=== PATIENT | male | born 1980 | race Caucasian/White ===

== ENCOUNTER 2019-02-25 19:03 | Emergency (ER) | payer SELFPAY ==
[2019-02-25 19:05] VITALS: BMI 27.8
--- NOTE | 2019-02-25 19:45 | ED_ITS ---
Entered by Shirlene Benites, acting as scribe for Arnie Gupta DO Feb 25, 2019 19:03 HPI - Nausea/Vomiting/Diarrhea General: Chief complaint: Nausea/Vomiting/Diarrhea Stated complaint: N/V Time Seen by Provider: 02/25/19 19:44 Source: patient Mode of arrival: ambulatory Limitations: no limitations History of Present Illness: HPI Narrative: 38 yo Male presents to ED with complaint of abdominal pain, nausea, and vomiting. Pt states that this started last night. Pt states that this happens about every 6 months but this is worse than it has ever been before. Pt states that he was on Prilosec before but he doesn't believe in taking it and it is difficult to afford. Pt states that he has burning pain in his throat from vomiting. MD elicited complaint: nausea, vomiting and abdominal pain Onset (ago): day(s) (last night) Description of vomiting: bilious Associated nausea: Yes Associated abdominal pain: Yes Location of pain: Epigastric Relieving factors: none Associated symtoms: Reports fevers/chills and nausea Review of Systems General: Reports: 10 or more systems reviewed and unremarkable except in HPI and below Const: Reports: fever ENMT: Reports: throat pain GI: Reports: abdominal pain, nausea and vomiting PFSH ED PFSH: Statuses (acute, chronic, etc) shown below reflect problem list status as previously entered and may not be historically accurate Social History (Updated 02/25/19 @ 19:52 by Shirlene Benites) Smoking and tobacco status: current every day smoker Substance/Drug Use: current Substance/Drug use frequency: Special occassions/opportunity only Substance/Drug use type: Marijuana Physical Exam Const: COMMON NORMALS: no apparent distress, average body habitus, oriented x3, no limitations, healthy appearing, alert and well nourished HENMT: COMMON NORMALS: normocephalic, head/scalp atraumatic, hearing grossly normal bilaterally, external ears normal, EAC's normal, TM's normal bilaterally, external nose normal, nasal mucous membranes and turbinates normal, moist oral mucous membranes, oropharynx normal, dentition normal and gingiva normal HEAD & SCALP: normocephalic and atraumatic NOSE: external nose normal and nasal mucous membranes and turbinates normal EXTERNAL EAR: Yes external ears normal EXTERNAL AUDITORY CANAL: EAC's normal TYMPANIC MEMBRANE: TM's normal bilaterally Eye: COMMON NORMALS: PERRL, EOMs intact bilaterally, conjunctivae normal, no scleral icterus, no papilledema, normal visual esquivel by confrontation and fundi normal bilaterally CONJUNCTIVA: Yes conjunctivae normal PUPIL: Yes PERRL DIRECT OPHTHALMOSCOPY: Yes no papilledema and Yes fundi normal bilaterally Neck/C-Spine: COMMON NORMALS: full ROM, no lymphadenopathy, supple, no meningeal signs, no JVD, thyroid normal and no carotid bruits THYROID: thyroid normal Chest: COMMONS NORMALS: inspection of chest normal and palpation of chest normal Resp: COMMON NORMALS: normal respiratory effort, no retractions, no use of accessory muscles, clear to auscultation bilaterally and percussion normal AUSCULTATION: clear to auscultation bilaterally PERCUSSION: percussion normal Cardio: COMMON NORMALS: no JVD, regular rate, regular rhythm, S1 normal heart sound, S2 normal heart sound, no gallops, no clicks, no murmurs, no rub and peripheral pulses 2+ throughout RATE: regular rate RHYTHM: regular rhythm HEART SOUNDS: S1 normal and S2 normal PERIPHERAL PULSES: pulses 2+ throughout GI: COMMON NORMALS: normal to inspection, nondistended, normoactive bowel sounds, soft to palpation, non-tender, no hepatosplenomegaly, no masses and no bruits PALPATION: Yes soft and Yes no hepatosplenomegaly : COMMON NORMALS: Yes no CVA tenderness BLADDER/KIDNEY EXAM: Yes no CVA tenderness Back/Pelvis: COMMON NORMALS: no CVA tenderness, thoracic and lumbar spine normal to inspection, no thoracic nor lumbar tenderness, thoraco-lumbar ROM normal and straight leg raise negative bilaterally Extremity: COMMON NORMALS: normal to inspection, full ROM, normal capillary refill, no joint enlargement, no clubbing, cyanosis or edema, no calf tenderness and no pedal edema Neuro: COMMON NORMALS: oriented x3 SENSORIUM/ORIENTATION: Yes alert MENINGEAL SIGNS: Yes no meningeal signs Skin: COMMON NORMALS: no rashes or lesions noted, no wounds, skin turgor normal, no jaundice, no petechiae and no mottling GENERAL SKIN EXAM: no rashes or lesions noted and turgor normal Course Vital Signs: Vital signs: Vital Signs Pulse Rate 63 02/25/19 21:16 Respiratory Rate 19 H 02/25/19 21:16 Blood Pressure 139/72 02/25/19 21:16 Pulse Oximetry 96 02/25/19 21:16 MDM - Nausea/Vomiting/Diarrhea Lab Data: Labs: Lab Results 02/25/19 02/25/19 Range/Units 20:01 20:01 WBC 10.4 H (4.0-10.0) 10^3/ uL RBC 5.71 H (4.1-5.3) 10^6/u L Hgb 16.6 (11.7-16.6) g/dL Hct 48.3 (42.0-52.0) % MCV 84.6 (80-94) fL MCH 29.1 (28.0-34.0) pg MCHC 34.4 (30.0-36.0) g/dL RDW 12.2 (12.1-15.1) % Plt Count 232 (130-400) 10^3/c mm MPV 10.3 (7.4-10.4) fL Neut % (Auto) 86.6 % Lymph % (Auto) 7.1 % [place] % (Auto) 5.8 % Eos % (Auto) 0.0 % Baso % (Auto) 0.1 % Neut # (Auto) 9.0 H (1.8-7.7) 10^3/u L Lymph # (Auto) 0.7 L (0.8-4.8) 10^3/u L [place] # (Auto) 0.6 (0.2-0.9) 10^3/u L Eos # (Auto) 0.0 (0.0-0.8) 10^3/u L Baso # (Auto) 0.0 (0.0-0.1) 10^3/u L Nucleated RBC % (a uto) 0 % Nucleated RBCs # 0.0 /100WBC Sodium 139 (136-145) mmol/L Potassium 3.8 (3.5-5.1) mmol/L Chloride 96 L (98-107) mmol/L Carbon Dioxide 28 (22-29) mmol/L Anion Gap 18.8 (5-19) BUN 19 (6-20) mg/dL Creatinine 1.0 (0.7-1.2) mg/dL GFR Calculation 83.2 L (90-130) mL/min Glucose 135 H (74-109) mg/dL Calcium 11.0 H (8.6-10.0) mg/Dl Total Bilirubin 0.5 (0.15-1.2) mg/dL AST 21 (0-40) U/L ALT 19 (0-41) U/L Alkaline Phosphata se 81 (40-130) IU/L Total Protein 7.9 (6.6-8.7) g/dL Albumin 5.2 (3.5-5.2) g/dL Globulin 2.7 (1.3-4.6) g/dL Lipase 52 (13-60) U/L Imaging Data^: CT Abd/Pel: Radiologist's impression: [place] [address] CT Scan Report Signed Patient: Caleb Randall CMR#: [id number] : 1980Acct:[id number] Age/Sex: 38 / MADM Date: 02/25/19 Loc: ER Attending Dr: Ordering Physician: Arnie Gupta DO Date of Service: 02/25/19 Procedure(s): CT abdomen pelvis w con* [id number] Accession Number(s): [id number] cc: Arnie Gupta DO~ PROCEDURE INFORMATION: Exam: CT Abdomen And Pelvis With Contrast Exam date and time: 02/25/2019 8:10 PM Age: 38 years old Clinical indication: Pain; Other: Acute gastritis; Additional info: Acute on chronic gastritis TECHNIQUE: Imaging protocol: Computed tomography of the abdomen and pelvis with intravenous contrast. Total DLP: 837.11 mGy-cm Radiation optimization: All CT scans at this facility use at least one of these dose optimization techniques: automated exposure control; mA and/or kV adjustment per patient size (includes targeted exams where dose is matched to clinical indication); or iterative reconstruction. Contrast material: OMNI; Contrast volume: 95 ml; Contrast route: IV; COMPARISON: CT abdomen pelvis w con* [id number] 07/31/2018 2:38 PM FINDINGS: Liver: Normal. No mass. Gallbladder and bile ducts: Normal. No calcified stones. No ductal dilation. Pancreas: Normal. No ductal dilation. Spleen: Normal. No splenomegaly. Adrenals: Normal. No mass. Kidneys and ureters: Normal. No hydronephrosis. Stomach and bowel: Unremarkable. No obstruction. No mucosal thickening. Appendix: Normal. Intraperitoneal space: Unremarkable. No free air. No significant fluid collection. Vasculature: Unremarkable. No abdominal aortic aneurysm. Lymph nodes: Unremarkable. No enlarged lymph nodes. Bladder: Unremarkable as visualized. Reproductive: Unremarkable as visualized. Bones/joints: Unremarkable. No acute fracture. Soft tissues: Unremarkable. CT/CT abdomen pelvis w con* [id number] IMPRESSION: No acute abnormality in the abdomen or pelvis. Radiation Dose CTDIVOL = (mGy): DLP = 837.11 (mGy-cm) Dictated By: Alec Martinez MD 02/25/192122 Signed By: Alec Martinez MD 02/25/192124 Discharge Plan Discharge Patient Disposition: Home, Self-Care Clinical Impression: Dehydration Gastritis Qualifiers: Gastritis type: unspecified gastritis Chronicity: acute Gastritis bleeding: without bleeding Qualified Code(s): K29.00 - Acute gastritis without bleeding GERD (gastroesophageal reflux disease) Qualifiers: Esophagitis presence: with esophagitis Qualified Code(s): K21.0 - Gastro- esophageal reflux disease with esophagitis Nausea and vomiting Qualifiers: Vomiting type: unspecified Vomiting Intractability: non-intractable Qualified Code(s): R11.2 - Nausea with vomiting, unspecified Condition: Stable Prescriptions: New famotidine [Pepcid] 40 mg tablet 40 mg PO BID 56 Days Qty: 112 RF: 0 sucralfate [Carafate] 100 mg/mL suspension 10 ml PO TID 56 Days Qty: 1680 RF: 0 ondansetron 4 mg tablet,disintegrating 4 mg PO Q6H PRN (Reason: nausea and vomiting) Qty: 10 RF: 1 Discharge Orders: Discharge Order (Routine); Ordered 02/25/19 Ordered By: Arnie Gupta Referrals: Charity Alas, [employer] [Family Provider] - Discharge Diet: GI Soft Discharge Activity: Resume usual activity Coding Level of Care Code ED Desktop Support Specialist for Chg Fwd Exam Problem Focused The documentation recorded by the Kamari barrera Carmen, accurately reflects the service I personally performed and the decisions made by Candy ramirez Donald P, DO Feb 25, 2019 19:03
[2019-02-25 19:47] VITALS: BP 121/62; PULSE 80; RESP 18; O2SAT 96
--- NOTE | 2019-02-25 19:54 | CTR_ITS ---
PROCEDURE INFORMATION: Exam: CT Abdomen And Pelvis With Contrast Exam date and time: 02/25/2019 8:10 PM Age: 38 years old Clinical indication: Pain; Other: Acute gastritis; Additional info: Acute on chronic gastritis TECHNIQUE: Imaging protocol: Computed tomography of the abdomen and pelvis with intravenous contrast. Total DLP: 837.11 mGy-cm Radiation optimization: All CT scans at this facility use at least one of these dose optimization techniques: automated exposure control; mA and/or kV adjustment per patient size (includes targeted exams where dose is matched to clinical indication); or iterative reconstruction. Contrast material: OMNI; Contrast volume: 95 ml; Contrast route: IV; COMPARISON: CT abdomen pelvis w con* [id number] 07/31/2018 2:38 PM FINDINGS: Liver: Normal. No mass. Gallbladder and bile ducts: Normal. No calcified stones. No ductal dilation. Pancreas: Normal. No ductal dilation. Spleen: Normal. No splenomegaly. Adrenals: Normal. No mass. Kidneys and ureters: Normal. No hydronephrosis. Stomach and bowel: Unremarkable. No obstruction. No mucosal thickening. Appendix: Normal. Intraperitoneal space: Unremarkable. No free air. No significant fluid collection. Vasculature: Unremarkable. No abdominal aortic aneurysm. Lymph nodes: Unremarkable. No enlarged lymph nodes. Bladder: Unremarkable as visualized. Reproductive: Unremarkable as visualized. Bones/joints: Unremarkable. No acute fracture. Soft tissues: Unremarkable. CT/CT abdomen pelvis w con* [id number] IMPRESSION: No acute abnormality in the abdomen or pelvis. Radiation Dose CTDIVOL = (mGy): DLP = 837.11 (mGy-cm)
[2019-02-25 20:05] VITALS: RESP 18
[2019-02-25] MEDS: morphine 4 mg/mL SDV 1 mL IVP (20:05)
[2019-02-25] MEDS: ondansetron 2 mg/ML SDV 2 mL 4 MG IM (20:05)
[2019-02-25] MEDS: sodium chloride 0.9% 1,000 ML 999 ML IV (20:08)
[2019-02-25 20:10] LABS: Basophils % 0.1 %; Hematocrit 48.3 % (42.0-52.0); Hemoglobin 16.6 g/dL (11.7-16.6); Lymphocytes # 0.7 10^3/uL (0.8-4.8); Lymphocytes % 7.1 %; Mean Corpuscular HGB Conc 34.4 g/dL (30.0-36.0); Mean Corpuscular Hemoglobin 29.1 pg (28.0-34.0); Mean Corpuscular Volume 84.6 fL (80-94); Mean Platelet Volume 10.3 fL (7.4-10.4); Monocytes # 0.6 10^3/uL (0.2-0.9); Monocytes % 5.8 %; Neutrophils % 86.6 %; Nucleated Red Blood Cells % 0 %; Platelet Count 232 10^3/cmm (130-400); Red Blood Count 5.71 10^6/uL (4.1-5.3); Red Cell Distribution Width 12.2 % (12.1-15.1); White Blood Count 10.4 10^3/uL (4.0-10.0)
[2019-02-25 20:28] LABS: Alanine Aminotransferase 19 U/L (0-41); Albumin Level 5.2 g/dL (3.5-5.2); Alkaline Phosphatase 81 IU/L (40-130); Anion Gap 18.8 (5-19); Aspartate Amino Transferase 21 U/L (0-40); Blood Urea Nitrogen 19 mg/dL (6-20); Carbon Dioxide 28 mmol/L (22-29); Chloride 96 mmol/L (98-107); Globulin 2.7 g/dL (1.3-4.6); Glomerular Filtration Rate 83.2 mL/min (90-130); Glucose 135 mg/dL (74-109); Lipase 52 U/L (13-60); Potassium 3.8 mmol/L (3.5-5.1); Sodium 139 mmol/L (136-145); Total Bilirubin 0.5 mg/dL (0.15-1.2); Total Protein 7.9 g/dL (6.6-8.7)
[2019-02-25 20:51] VITALS: BP 132/95; PULSE 68; RESP 18; O2SAT 96
[2019-02-25] MEDS: pantoprazole 40 mg SDV IVP (20:53)
[2019-02-25 21:16] VITALS: BP 139/72; PULSE 63; RESP 19; O2SAT 96
[2019-02-25 22:30] VITALS: BP 117/61; PULSE 70; RESP 19; O2SAT 96
== END 2019-02-25 22:36 | disposition home or self-care (01) ==
PROVIDERS: Emergency Provider Family Medicine; Family Provider Nurse Practitioner
DX: K29.00 Acute gastritis without bleeding (principal); K21.0 Gastro-esophageal reflux disease with esophagitis; F17.210 Nicotine dependence, cigarettes, uncomplicated
CPT/HCPCS: 74177; 80053; 83690; 85025; 96360; 96361; 96374; 99282; C9113; J2270; J2405; J7030; Q9967

== ENCOUNTER 2019-08-31 06:29 | Emergency (ER) | payer SELFPAY ==
[2019-08-31 06:33] VITALS: BP 163/75; PULSE 75; RESP 18; TEMP 36.9; O2SAT 99; BMI 29.1
[2019-08-31 06:45] VITALS: BP 163/75; PULSE 56; RESP 16; O2SAT 96
--- NOTE | 2019-08-31 07:01 | PC.NURSE ---
REPORT GIVEN TO AVELINA Aponte FOR TRANSFER OF CARE.
--- NOTE | 2019-08-31 07:17 | ED_ITS ---
HPI - Abdominal Pain General: Chief Complaint: Abdominal Pain Stated Complaint: n/v abd pain Time Seen by Provider: 08/31/19 06:59 Source: patient Mode of arrival: ambulatory Limitations: no limitations History of Present Illness: HPI narrative: Patient is a 39-year-old male who presents to ED today with complaints of abdominal pain, nausea, vomiting, diarrhea. Patient states pain began approximately 1.5 days ago. He states he has had countless episodes of vomiting and now having a sore throat. He has not noticed any hematemesis, melanotic stools or hematochezia. Patient states he has had similar symptoms several times previously and has been seen here for evaluation many times. Patient states they never have found a definitive cause for his symptoms. Patient does tell me he uses marijuana but is not a habitual user he states he normally will use it on the weekends and rarely throughout the week if he needs something to help him sleep. Patient denies any recent antibiotic use, bad food exposure, sick contacts. He has not been running fevers. MD elicited complaint: abdominal pain Onset (ago): day(s) Pain Consistency: constant Location: Diffuse, RUQ and RLQ Quality: cramping Radiation: none Migration to: no migration Exacerbating factors: eating Relieving factors: nothing Associated Symptoms: Reports diarrhea, nausea and vomiting; Denies chills, coffee ground emesis, dysuria, fever(s), hematochezia, hematemesis, melena and syncope Review of Systems Const: Denies: fever(s), chills, body aches, fatigue or malaise ENMT: Reports: throat pain (sore throat from vomiting per patient) Card: Denies: chest pain, palpitations, irregular heart rhythm, edema, lightheadedness, syncope, pre-syncope or orthopnea Resp: Denies: dyspnea, hemoptysis or chest congestion GI: Reports: abdominal pain, nausea, vomiting and diarrhea; Denies: hematemesis, coffee ground emesis, dysphagia, hematochezia or melena : Denies: flank pain, difficulty urinating, dysuria, urinary frequency, urinary urgency or urinary hesitancy Musc: Denies: neck pain or back pain Skin/Breast: Denies: rash Neuro: Denies: headache(s), numbness in extremities, weakness in extremities or sensory changes PFS ED PFSH: Social History (Updated 02/25/19 @ 19:52 by Shirlene Benites) Smoking and tobacco status: current every day smoker Physical Exam Const: COMMON NORMALS: no acute distress, average body habitus, patient oriented x3, no limitations, healthy appearing, alert and well nourished HENMT: COMMON NORMALS: normocephalic and atraumatic HEAD & SCALP: normocephalic and atraumatic Neck/C-Spine: COMMON NORMALS: full ROM GENERAL: Yes normal visual inspection Chest: COMMONS NORMALS: normal inspection of the chest and normal palpation of entire chest wall Resp: COMMON NORMALS: normal respiratory effort and clear to auscultation bilaterally AUSCULTATION: clear to auscultation bilaterally Cardio: COMMON NORMALS: regular rate and regular rhythm RATE: regular rate RHYTHM: regular rhythm GI: COMMON NORMALS: Normal to inspection, nondistended, normoactive bowel sounds present, Soft to palpation, No hepatosplenomegaly present and no masses INSPECTION: Yes normal to inspection AUSCULTATION: Yes normoactive bowel sounds PALPATION: Yes Soft to palpation, Yes Tenderness to palpation present (GI) (diffuse but more so to R side and epigastric region ) and Yes No hepat osplenomegaly present Extremity: COMMON NORMALS: normal to inspection Neuro: COMMON NORMALS: patient oriented x3 SENSORIUM/ORIENTATION: Yes alert Skin: COMMON NORMALS: no rashes or lesions noted GENERAL SKIN EXAM: no rashes or lesions noted Course Vital Signs: Vital signs: Vital Signs Temperature 98.4 F 08/31/19 06:33 Pulse Rate 52 L 08/31/19 09:38 Respiratory Rate 16 08/31/19 06:45 Blood Pressure 106/58 08/31/19 09:38 Pulse Oximetry 97 08/31/19 09:38 MDM - Abdominal Pain MDM Narrative: Medical decision making narrative: Patient feels better after medications given here. His labs and CT scan are non-concerning at this time. CT scan did report some possible chronic cholecystitis. He has normal LFTs. Looking at patient's previous visit lists he has been seen here several times for similar symptoms. Spoke to him about the possibility of hyperemesis cannabis syndrome. Recommend follow-up with PCP. Return to ED precautions given. Lab Data: Labs: Lab Results 08/31/19 08/31/19 08/31/19 Range/Units 07:15 07:15 08:49 WBC 11.1 H (4.0-10.0) 10^3/ uL RBC 5.49 H (4.1-5.3) 10^6/u L Hgb 16.5 (11.7-16.6) g/dL Hct 47.7 (42.0-52.0) % MCV 86.9 (80-94) fL MCH 30.1 (28.0-34.0) pg MCHC 34.6 (30.0-36.0) g/dL RDW 12.1 (12.1-15.1) % Plt Count 228 (130-400) 10^3/c mm MPV 10.5 H (7.4-10.4) fL Neut % (Auto) 87.9 % Lymph % (Auto) 6.1 % [place] % (Auto) 5.6 % Eos % (Auto) 0.0 % Baso % (Auto) 0.1 % Neut # (Auto) 9.79 H (1.8-7.7) 10^3/u L Lymph # (Auto) 0.7 L (0.8-4.8) 10^3/u L [place] # (Auto) 0.6 (0.2-0.9) 10^3/u L Eos # (Auto) 0.0 (0.0-0.8) 10^3/u L Baso # (Auto) 0.0 (0.0-0.1) 10^3/u L Nucleated RBC % (a uto) 0 % Nucleated RBCs # 0.0 /100WBC Sodium 138 (136-145) mmol/L Potassium 3.5 (3.5-5.1) mmol/L Chloride 98 (98-107) mmol/L Carbon Dioxide 28 (22-29) mmol/L Anion Gap 15.5 (5-19) BUN 15 (6-20) mg/dL Creatinine 0.9 (0.7-1.2) mg/dL GFR Calculation 93.5 (90-130) mL/min Glucose 162 H (65-115) mg/dL Calculated Osmolal ity 286 (285-295) mOsm/k g Calcium 10.2 (8.5-10.5) mg/dL Total Bilirubin 0.5 (0.15-1.2) mg/dL AST 20 (0-40) U/L ALT 18 (0-41) U/L Alkaline Phosphata se 70 (40-130) IU/L Total Protein 7.3 (6.6-8.7) g/dL Albumin 4.9 (3.5-5.2) g/dL Globulin 2.4 (1.3-4.6) g/dL Lipase 38 (13-60) U/L Urine Color Yellow (Yellow) Urine Appearance Clear (CLEAR) Urine pH 7 (5-7) Ur Specific Gravit y 1.010 (1.005-1.030) Urine Protein 1+ H (Negative) Urine Glucose (UA) 2+ (Normal) Urine Ketones 1+ H (Negative) Urine Blood Neg (Negative) Urine Nitrate Negative (Negative) Urine Bilirubin Neg (NEGATIVE) Urine Urobilinogen Norm (Negative) mg/dL Ur Leukocyte Radha ase Negative (Negative) Urine RBC None (0-2) /hpf Urine WBC None (0-5) /hpf Ur Squamous Epith Cells 0-4 H (0-5) Amorphous Sediment Not Reportable Urine Bacteria Trace (NONE) Urine Mucus 2+ Imaging Data ^: CT Abd/Pel: Radiologist's impression: [place] [address] CT Scan Report Signed Patient: Caleb Randall Unit #: [id number] : 1980 Age/Sex: 39 / M ADM Date: 08/31/19 Loc: ER Room/Bed: Attending Dr: Ordering Provider/Ordering MD: Radha Hart Date of Service: 08/31/19 Procedure(s): CT abdomen pelvis w con* [id number] Accession Number(s): [id number] Report Number: [id number] WS: [id number] CT ABDOMEN AND PELVIS WITH CONTRAST HISTORY: R sided/RLQ and epigastric abdominal pain TECHNIQUE: Imaging performed of the abdomen and pelvis with IV contrast. Single phase imaging of the abdomen. Coronal and sagittal reformats are submitted. All CT scans at [facility] use at least one of these dose optimization techniques: automated exposure control; mA and/or kV adjustment per patient size (includes targeted exams where dose is matched to clinical indication); or iterative reconstruction. IV CONTRAST: Omnipaque 300; 95 mL IV. Oral contrast: No DLP: 1040.26 mGy.cm COMPARISON: 02/25/2019 Lower thorax: Lung bases are clear. Heart is normal size. Small hiatal hernia. Liver/biliary system: Liver is normal size. There are a few tiny hypodensities which are too small to characterize. Gallbladder: Mildly contracted gallbladder. No adjacent inflammation. No bile duct dilatation. Pancreas: Normal. Spleen: Normal. Adrenal glands: Normal. Right kidney: Normal. Left kidney: Normal. Aorta: Normal. Lymphadenopathy: None. Free fluid: None. GI tract: Normal appendix. Moderate distention of the stomach with fluid. No acute inflammatory process or obstruction. There are a few diverticula without acute diverticulitis. Abdominal wall: Unremarkable abdominal wall. No hernia. Pelvis: Normal. Bones: Unremarkable. CT/CT abdomen pelvis w con* [id number] IMPRESSION: 1. No acute abdominal or pelvic abnormalities. 2. Slightly contracted gallbladder. May be due to nonfasting state or chronic cholecystitis. Dictated By: Cristina Loco DO Signed By: Cristina Loco DO Signed Date/Time: 08/31/19 1012 DD/ 1000 Discharge Plan Discharge Patient Disposition: Home, Self-Care Clinical Impression: Intermittent abdominal pain, Marijuana user Nausea & vomiting Qualifiers: Vomiting type: unspecified Vomiting Intractability: non-intractable Qualified Code(s): R11.2 - Nausea with vomiting, unspecified Condition: Stable Prescriptions: New ondansetron HCl [Zofran] 4 mg tablet 4 mg PO Q6H PRN (Reason: nausea and vomiting) Qty: 14 RF: 0 Discharge Orders: Discharge Order (Routine); Ordered 08/31/19 Ordered By: Radha Hart Referrals: Charity Alas, [employer]EWEL[employer] FINISH[employer] [Family Provider] - Patient Instructions: Abdominal Pain (ED) Coding Level of Care Code ED Union Organiser for g Fwd Exam Comprehensive
[2019-08-31 07:26] LABS: Basophils % 0.1 %; Hematocrit 47.7 % (42.0-52.0); Hemoglobin 16.5 g/dL (11.7-16.6); Lymphocytes # 0.7 10^3/uL (0.8-4.8); Lymphocytes % 6.1 %; Mean Corpuscular HGB Conc 34.6 g/dL (30.0-36.0); Mean Corpuscular Hemoglobin 30.1 pg (28.0-34.0); Mean Corpuscular Volume 86.9 fL (80-94); Mean Platelet Volume 10.5 fL (7.4-10.4); Monocytes # 0.6 10^3/uL (0.2-0.9); Monocytes % 5.6 %; Neutrophils # 9.79 10^3/uL (1.8-7.7); Neutrophils % 87.9 %; Nucleated Red Blood Cells % 0 %; Platelet Count 228 10^3/cmm (130-400); Red Blood Count 5.49 10^6/uL (4.1-5.3); Red Cell Distribution Width 12.1 % (12.1-15.1); White Blood Count 11.1 10^3/uL (4.0-10.0)
[2019-08-31] MEDS: ondansetron 2 mg/ML SDV 2 mL 4 MG IVP (07:30)
[2019-08-31] MEDS: sodium chloride 0.9% 1,000 ML 999 ML IV (07:30)
[2019-08-31] MEDS: cetacaine Spray 5 gm Can 1 SPRAY TOPICAL (07:30)
[2019-08-31 07:38] LABS: Alanine Aminotransferase 18 U/L (0-41); Albumin Level 4.9 g/dL (3.5-5.2); Alkaline Phosphatase 70 IU/L (40-130); Anion Gap 15.5 (5-19); Aspartate Amino Transferase 20 U/L (0-40); Blood Urea Nitrogen 15 mg/dL (6-20); Calcium 10.2 mg/dL (8.5-10.5); Carbon Dioxide 28 mmol/L (22-29); Chloride 98 mmol/L (98-107); Creatinine Clr Calc Pharmacy 132.0506; Globulin 2.4 g/dL (1.3-4.6); Glomerular Filtration Rate 93.5 mL/min (90-130); Glucose 162 mg/dL (65-115); Lipase 38 U/L (13-60); Osmolality Calculated 286 mOsm/kg (285-295); Potassium 3.5 mmol/L (3.5-5.1); Sodium 138 mmol/L (136-145); Total Bilirubin 0.5 mg/dL (0.15-1.2); Total Protein 7.3 g/dL (6.6-8.7)
--- NOTE | 2019-08-31 07:49 | CT_ITS ---
WS: [id number] CT ABDOMEN AND PELVIS WITH CONTRAST HISTORY: R sided/RLQ and epigastric abdominal pain TECHNIQUE: Imaging performed of the abdomen and pelvis with IV contrast. Single phase imaging of the abdomen. Coronal and sagittal reformats are submitted. All CT scans at [facility] use at least one of these dose optimization techniques: automated exposure control; mA and/or kV adjustment per patient size (includes targeted exams where dose is matched to clinical indication); or iterativ e reconstruction. IV CONTRAST: Omnipaque 300; 95 mL IV. Oral contrast: No DLP: 1040.26 mGy.cm COMPARISON: 02/25/2019 Lower thorax: Lung bases are clear. Heart is normal size. Small hiatal hernia. Liver/biliary system: Liver is normal size. There are a few tiny hypodensities which are too small to characterize. Gallbladder: Mildly contracted gallbladder. No adjacent inflammation. No bile duct dilatation. Pancreas: Normal. Spleen: Normal. Adrenal glands: Normal. Right kidney: Normal. Left kidney: Normal. Aorta: Normal. Lymphadenopathy: None. Free fluid: None. GI tract: Normal appendix. Moderate distention of the stomach with fluid. No acute inflammatory proce ss or obstruction. There are a few diverticula without acute diverticulitis. Abdominal wall: Unremarkable abdominal wall. No hernia. Pelvis: Normal. Bones: Unremarkable. CT/CT abdomen pelvis w con* [id number] IMPRESSION: 1. No acute abdominal or pelvic abnormalities. 2. Slightly contracted gallbladder. May be due to nonfasting state or chronic cholecystitis.
[2019-08-31] MEDS: morphine 4 mg/mL SDV 1 mL IVP (08:05)
[2019-08-31 08:10] VITALS: BP 143/80; PULSE 67; O2SAT 99
[2019-08-31] MEDS: iohexol 300 mg/mL 100 mL Btl IV (08:24)
[2019-08-31] MEDS: metoclopramide 5 mg/mL SDV 2 mL 10 MG IVP (08:32)
[2019-08-31] MEDS: LORazepam 2 mg/mL INJ 1 mL 1 MG IVP (08:35)
[2019-08-31 08:44] VITALS: BP 122/77; PULSE 61; O2SAT 95
[2019-08-31 09:09] LABS: Urine Appearance Clear (CLEAR); Urine Color Yellow (Yellow); pH Urine 7 (5-7)
[2019-08-31 09:10] LABS: Add Urine Microscopic? YES; Bilirubin Urine Neg (NEGATIVE); Blood Urine Neg (Negative); Glucose Urine UA 2+ (Normal); Ketones Urine 1+ (Negative); Leukocyte Esterase Urine Negative (Negative); Nitrate Urine Negative (Negative); Protein Urine 1+ (Negative); Urobilinogen Urine Norm (Negative)
[2019-08-31 09:30] LABS: Add Urine Culture? No; Bacteria Urine TRACE; Mucus Urine 2+; Squamous Epithelial Cell Urine 0-4 (0-5)
[2019-08-31 09:38] VITALS: BP 106/58; PULSE 52; O2SAT 97
[2019-08-31 10:57] VITALS: BP 129/67; PULSE 79; O2SAT 97
== END 2019-08-31 10:57 | disposition home or self-care (01) ==
PROVIDERS: Emergency Provider Physician Assistant; PCP Nurse Practitioner
DX: R10.9 Unspecified abdominal pain (principal); R11.2 Nausea with vomiting, unspecified; F12.90 Cannabis use, unspecified, uncomplicated; F17.210 Nicotine dependence, cigarettes, uncomplicated
CPT/HCPCS: 12345; 74177; 80053; 81001; 81003; 83690; 85025; 96361; 96374; 96375; 99283; 99284; J2060; J2270; J2405; J2765; J7030; Q9967

== ENCOUNTER 2019-10-17 23:03 | Emergency (ER) | payer SELFPAY ==
[2019-10-17 23:22] VITALS: BP 150/83; PULSE 93; RESP 18; TEMP 36.7; O2SAT 97; BMI 27.8
--- NOTE | 2019-10-17 23:27 | W.ED.NAVMDI ---
HPI - Nausea/Vomiting/Diarrhea General: Chief complaint: Nausea/Vomiting/Diarrhea Stated complaint: n/v Time Seen by Provider: 10/17/19 23:26 History of Present Illness: HPI Narrative: Patient is a 39-year-old male who comes to the ED with abdominal pain, nausea, vomiting and diarrhea. Patient was seen here on August 30 for similar complaint. Symptoms started yesterday evening. Patient describes abdominal pain is in the epigastric region and also in the right upper quadrant. He rates pain currently an 8 out of 10. Describes it as a burning pain. Patient says he has been unable to keep any food or drink down since symptoms started yesterday. He has had multiple episodes of emesis and whenever he tries to eat or drink anything it comes back up. He also reports multiple episodes of diarrhea last 24 hours as well. He reports a brief improvement of symptoms when taking a hot shower. Patient does admit that he is a chronic marijuana user. He states he is tried cutting back since his last ED visit on August 30. Denies fever, chills, blood in the emesis, chest pain, shortness of breath, dysuria, hematuria, blood in the stool, black tarry stool or constipation. Associated nausea: Yes Associated symtoms: Reports nausea; Denies change in vision, chest pain, dysuria, fatigue, headache(s) or palpitations Review of Systems Const: Denies: fever(s), chills or fatigue Eyes: Denies: change in vision or eye discomfort ENMT: Denies: throat pain, odynophagia, nasal discharge or nasal congestion Card: Denies: chest pain, palpitations, edema, swelling of feet/ankles, dyspnea on exertion or orthopnea Resp: Denies: dyspnea, productive cough or non-productive cough GI: Reports: abdominal pain (epigastric and RUQ), nausea, vomiting and diarrhea; Denies: constipation or hematochezia : Denies: flank pain, difficulty urinating, dysuria or hematuria Musc: Denies: neck pain, back pain or extremity swelling Skin/Breast: Denies: rash or new lesions Neuro: Denies: headache(s), numbness in extremities or weakness in extremities PFS ED PFSH: Social History Smoking and tobacco status: current every day smoker Physical Exam Narrative: EXAM NARRATIVE: Patient is a 39-year-old male that was having an episode of emesis when I entered the room. Const: COMMON NORMALS: patient oriented x3 and alert GENERAL APPEARANCE: cooperative and ill appearing (Patient appeared sick and was vomiting when I enter the room.) HENMT: COMMON NORMALS: normocephalic HEAD & SCALP: normocephalic MOUTH: moist mucous membranes abnormal (mild dehydration) THROAT: posterior oropharynx normal and uvula midline Eye: COMMON NORMALS: Equal, round and reactive pupils present PUPIL: Yes Equal, round and reactive pupils present Neck/C-Spine: COMMON NORMALS: supple GENERAL: Yes normal visual inspection Resp: COMMON NORMALS: normal respiratory effort, No retractions, No use of accessory muscles and clear to auscultation bilaterally AUSCULTATION: clear to auscultation bilaterally Cardio: COMMON NORMALS: regular rate, regular rhythm, S1 normal heart sound present, S2 normal heart sound present, No gallops present (Cardio), No clicks present (Cardio), No murmurs present (Cardio) and Peripheral pulses 2+ throughout RATE: regular rate RHYTHM: regular rhythm HEART SOUNDS: S1 normal heart sound present and S2 normal heart sound present PERIPHERAL PULSES: Peripheral pulses 2+ throughout GI: COMMON NORMALS: Normal to inspection, nondistended, normoactive bowel sounds present, Soft to palpation and no masses PALPATION: Yes Soft to palpation and Yes Tenderness to palpation present (GI) Details: RUQ (Mild tenderness with positive Ruiz sign.) and other (Epigastric region) : COMMON NORMALS: Yes no CVA tenderness BLADDER/KIDNEY EXAM: Yes no CVA tenderness Back/Pelvis: COMMON NORMALS: no CVA tenderness Extremity: COMMON NORMALS: normal to inspection and no pedal edema Neuro: COMMON NORMALS: patient oriented x3 and moves all extremities SENSORIUM/ORIENTATION: Yes alert Skin: COMMON NORMALS: no rashes or lesions noted GENERAL SKIN EXAM: no rashes or lesions noted and dry skin Course Reevaluation(s): Reevaluation #1: I went and checked on patient after he received IV medications and he said his nausea and pain have greatly improved. Time: 00:38 Vital Signs: Vital signs: Vital Signs Temperature 98.1 F 10/17/19 23:22 Pulse Rate 93 10/17/19 23:22 Respiratory Rate 20 H 10/18/19 00:25 Blood Pressure 150/83 10/17/19 23:22 Pulse Oximetry 97 10/17/19 23:22 MDM - Nausea/Vomiting/Diarrhea MDM Narrative: Medical decision making narrative: Patient is a 39-year-old male who comes to the ED with nausea and vomiting and epigastric and right upper quadrant abdominal pain. Patient has been seen here in the ED before for similar complaint. Patient reports having multiple episodes of nausea and emesis over the last 24 hours. His symptoms improved with hot shower. Patient is a chronic marijuana smoker. Patient had a tender right upper quadrant and epigastric region. CBC and CMP were unremarkable. Lipase 13. H. pylori negative. ultrasound of gallbladder was ordered and it showed no acute findings. Patient's symptoms improved greatly after IV fluids and meds. He had no further episodes of vomiting or nausea while here in the ED after getting treatment. Patient was diagnosed with cannabinoid hyperemesis syndrome. He was sent home on a clear liquid diet and told advance as tolerated. He was given a prescription for Reglan to help with nausea and vomiting. Discussed with him cessation of marijuana is the only way to resolve symptoms. Follow-up with PCP in 7 to 10 days. Patient understood and agreed with plan. Return to ED precautions given. Lab Data: Attestation: I reviewed the patient's lab results. Labs: Lab Results 10/18/19 10/18/19 10/18/19 Range/Units 00:10 00:10 00:10 WBC 9.0 (4.0-10.0) 10^3/ uL RBC 5.54 H (4.1-5.3) 10^6/u L Hgb 16.2 (11.7-16.6) g/dL Hct 48.1 (42.0-52.0) % MCV 86.8 (80-94) fL MCH 29.2 (28.0-34.0) pg MCHC 33.7 (30.0-36.0) g/dL RDW 12.3 (12.1-15.1) % Plt Count 233 (130-400) 10^3/c mm MPV 10.7 H (7.4-10.4) fL Neut % (Auto) 88.6 % Lymph % (Auto) 6.2 % [place] % (Auto) 5.0 % Eos % (Auto) 0.0 % Baso % (Auto) 0.1 % Neut # (Auto) 7.99 H (1.8-7.7) 10^3/u L Lymph # (Auto) 0.6 L (0.8-4.8) 10^3/u L [place] # (Auto) 0.5 (0.2-0.9) 10^3/u L Eos # (Auto) 0.0 (0.0-0.8) 10^3/u L Baso # (Auto) 0.0 (0.0-0.1) 10^3/u L Nucleated RBC % (a uto) 0 % Nucleated RBCs # 0.0 /100WBC Sodium 141 (136-145) mmol/L Potassium 3.7 (3.5-5.1) mmol/L Chloride 100 (98-107) mmol/L Carbon Dioxide 31 H (22-29) mmol/L Anion Gap 13.7 (5-19) BUN 11 (6-20) mg/dL Creatinine 0.9 (0.7-1.2) mg/dL GFR Calculation 93.5 (90-130) mL/min Glucose 156 H (65-115) mg/dL Calculated Osmolal ity 291 (285-295) mOsm/k g Calcium 9.4 (8.5-10.5) mg/dL Total Bilirubin 0.5 (0.15-1.2) mg/dL AST 15 (0-40) U/L ALT 16 (0-41) U/L Alkaline Phosphata se 69 (40-130) IU/L Total Protein 7.2 (6.6-8.7) g/dL Albumin 4.8 (3.5-5.2) g/dL Globulin 2.4 (1.3-4.6) g/dL Lipase 13 (13-60) U/L H. pylori IgG Anti body Negative (Negative) Imaging Data^: US: Attestation: I personally reviewed and interpreted this imaging study as follows: Radiologist's impression: Ultrasound of gallbladder?prelim report showed no acute findings or gallstones. Discharge Plan Discharge Patient Disposition: Home Clinical Impression: Cannabinoid hyperemesis syndrome Condition: Stable Prescriptions: New Reglan 10 mg tablet 10 mg PO Q6H PRN (Reason: nausea and vomiting) Qty: 30 RF: 0 No Action Zofran 4 mg tablet 4 mg PO Q6H PRN (Reason: nausea and vomiting) Qty: 14 RF: 0 Discharge Orders: Discharge Order (Routine); Ordered 10/18/19 Ordered By: Han Dillard Referrals: Charity Alas, STAGECRAFT PROFESSOR-C [Primary Care Provider] - Discharge Diet: Advance as tolerated and Clear Liquid Discharge Activity: Increase activity as tolerated Patient Instructions: Clear Liquid Diet (ED) Activity Restrictions/Additional Instructions: Follow-up with medical provider as directed in 7-10 days. For Cannabinoid hyperemesis syndrome cessation of marijuana use the best way to stop symptoms. Follow a clear liquid diet for the next 24 hours then advance as tolerated. Take medications as prescribed. I am sending you home with an antinausea med called Reglan. You can use this med and set of Zofran as needed for nausea and vomiting. Make sure to drink plenty of fluids and stay hydrated. Return to the ER or your medical provider if condition worsens. Please read and understand discharge instructions. If any questions, please ask. Coding Level of Care Code ED Riveting Machine Operator Automatic for Terrance Fwd Exam Comprehensive
--- NOTE | 2019-10-17 23:34 | US_ITS ---
WS: [id number] ULTRASOUND ABDOMEN LIMITED CLINICAL INFORMATION: RUQ tenderness, n/v COMPARISON: None. FINDINGS: Liver Size: Normal. Craniocaudal length: 15.9 cm. Echogenicity: Normal. Surface nodularity: None. Mass (size and location): None. Bile ducts Intrahepatic ducts: Normal. Common bile duct diameter: 0.5 cm. Gallbladder Normal. Gallstones: None. Gallbladder sludge: None. Gallbladder wall thickening: None. Pericholecystic fluid: None. Sonographic Ruiz sign: Absent. Pancreas Not well seen Right kidney: Normal. Hydronephrosis: None. Size: 11.4 cm x 5.1 cm x 3.8 cm. Abdominal aorta and IVC Visualized portions are normal. Ascites: None. US/US gall bladder [id number] IMPRESSION: 1. Liver is normal. 2. Normal gallbladder. 3. No hydronephrosis in right kidney.
[2019-10-18] MEDS: sodium chloride 0.9% 1,000 ML 999 ML IV ×2 (00:15→01:52)
[2019-10-18] MEDS: metoclopramide 5 mg/mL SDV 2 mL 10 MG IVP (00:20)
[2019-10-18 00:25] VITALS: RESP 20
[2019-10-18] MEDS: morphine 4 mg/mL SDV 1 mL IVP (00:25)
[2019-10-18 00:33] LABS: Basophils % 0.1 %; Hematocrit 48.1 % (42.0-52.0); Hemoglobin 16.2 g/dL (11.7-16.6); Lymphocytes # 0.6 10^3/uL (0.8-4.8); Lymphocytes % 6.2 %; Mean Corpuscular HGB Conc 33.7 g/dL (30.0-36.0); Mean Corpuscular Hemoglobin 29.2 pg (28.0-34.0); Mean Corpuscular Volume 86.8 fL (80-94); Mean Platelet Volume 10.7 fL (7.4-10.4); Monocytes # 0.5 10^3/uL (0.2-0.9); Neutrophils # 7.99 10^3/uL (1.8-7.7); Neutrophils % 88.6 %; Nucleated Red Blood Cells % 0 %; Platelet Count 233 10^3/cmm (130-400); Red Blood Count 5.54 10^6/uL (4.1-5.3); Red Cell Distribution Width 12.3 % (12.1-15.1)
[2019-10-18 00:44] LABS: Alanine Aminotransferase 16 U/L (0-41); Albumin Level 4.8 g/dL (3.5-5.2); Alkaline Phosphatase 69 IU/L (40-130); Anion Gap 13.7 (5-19); Aspartate Amino Transferase 15 U/L (0-40); Blood Urea Nitrogen 11 mg/dL (6-20); Calcium 9.4 mg/dL (8.5-10.5); Carbon Dioxide 31 mmol/L (22-29); Chloride 100 mmol/L (98-107); Globulin 2.4 g/dL (1.3-4.6); Glomerular Filtration Rate 93.5 mL/min (90-130); Glucose 156 mg/dL (65-115); H. Pylori IgG Antibody Negative (Negative); Lipase 13 U/L (13-60); Osmolality Calculated 291 mOsm/kg (285-295); Potassium 3.7 mmol/L (3.5-5.1); Sodium 141 mmol/L (136-145); Total Bilirubin 0.5 mg/dL (0.15-1.2); Total Protein 7.2 g/dL (6.6-8.7)
[2019-10-18] MEDS: metoclopramide 5 mg/mL SDV 2 mL IVP (01:55)
[2019-10-18 02:37] VITALS: BP 131/60; PULSE 65; RESP 18; O2SAT 98
== END 2019-10-18 02:38 | disposition home or self-care (01) ==
PROVIDERS: Emergency Medicine; Emergency Provider Physician Assistant; PCP Nurse Practitioner
DX: R11.10 Vomiting, unspecified (principal); F17.210 Nicotine dependence, cigarettes, uncomplicated
CPT/HCPCS: 12345; 76705; 80053; 83690; 85025; 86677; 96360; 96361; 96374; 96375; 96376; 99282; 99283; J2270; J2765; J7030

== ENCOUNTER 2020-10-16 20:43 | Emergency (ER) | payer SELFPAY ==
[2020-10-16 22:03] VITALS: BP 146/66; PULSE 72; RESP 16; TEMP 36.9; O2SAT 97; BMI 27.8
--- NOTE | 2020-10-17 00:25 | XRR_ITS ---
PROCEDURE INFORMATION: Exam: XR Left Tibia and Fibula Exam date and time: 10/17/2020 12:25 AM Age: 40 years old Clinical indication: Injury or trauma; Lower leg; Left; Without foreign body; Patient HX: Puncture wound to anterior aspect of distal tibia. ; Additional info: Pain TECHNIQUE: Imaging protocol: XR Left tibia and fibula. Views: 2 views. COMPARISON: No relevant prior studies available. FINDINGS: Bones/joints: No fracture. Soft tissues: Normal. XR/XR tibia fibula LT 2V [id number] IMPRESSION: No fracture.
--- NOTE | 2020-10-17 01:50 | ED_ITS ---
HPI - Extremity Problem General: Chief complaint: Extremity Injury, Lower Stated complaint: left leg pain Time Seen by Provider: 10/17/20 01:50 History of Present Illness: HPI Narrative: 40-year-old male patient comes in today with complaints of redness and tenderness to the puncture wound that occurred 2 days ago. Patient had his tetanus shot updated yesterday. Patient denies any chronic medical problems. Review of Systems General: Reports: 10 or more systems reviewed and unremarkable except in HPI and below Musc: Reports: other (Redness and swelling to wound site) PFS ED PFSH: Social History Smoking and tobacco status: current every day smoker Physical Exam Const: COMMON NORMALS: no acute distress and patient oriented x3 GENERAL APPEARANCE: cooperative HENMT: COMMON NORMALS: normocephalic and Normal external nose present HEAD & SCALP: normal to inspection and normocephalic NOSE: Normal external nose present MOUTH: Normal oral and palatal mucosa present Eye: GENERAL EYE: appearance normal, both eyes and all related structures Neck/C-Spine: COMMON NORMALS: full ROM Chest: COMMONS NORMALS: normal inspection of the chest Resp: COMMON NORMALS: normal respiratory effort EFFORT & INSPECTION: Yes able to speak in complete sentences Cardio: COMMON NORMALS: regular rate and regular rhythm RATE: regular rate RHYTHM: regular rhythm GI: COMMON NORMALS: non-tender : COMMON NORMALS: Yes no CVA tenderness BLADDER/KIDNEY EXAM: Yes no CVA tenderness Back/Pelvis: COMMON NORMALS: no CVA tenderness and thoracic and lumbar spine normal to inspection Extremity: COMMON NORMALS: normal to inspection Neuro: COMMON NORMALS: patient oriented x3 and moves all extremities Psych: COMMON NORMALS: mental status grossly normal and cooperative Skin: NARRATIVE SKIN EXAM: Patient has a puncture wound to the left lower leg with a small amount of serous sanguinous drainage. Patient has an area of approximately 6 cm around the site with redness. Distal pulses are intact. Cap refill is intact. Course Vital Signs: Vital signs: Vital Signs Temperature 98.4 F 10/16/20 22:03 Pulse Rate 72 10/16/20 22:03 Respiratory Rate 16 10/16/20 22:03 Blood Pressure 146/66 10/16/20 22:03 Pulse Oximetry 97 10/16/20 22:03 MDM - Extremity (Nontraumatic) MDM Narrative: Medical decision making narrative: 40-year-old male patient comes in with some redness and swelling to the left lower extremity secondary to a puncture wound. Patient is a routinely healthy young man. Patient has normal vital signs. Patient got his tetanus shot done yesterday. Exam of the wound notes a small puncture wound with a area of redness surrounding it about 6 cm. Differential diagnosis includes but not limited to cellulitis, local reaction to wound, retained foreign body. Patient reports that the wire that into the wound came out in 1 piece. Suspect patient has a secondary infection due to a puncture wound. We will start patient on clindamycin due to his allergy to amoxicillin. We will do 450 mg 3 times a day for the next 7 days. Patient was instructed to elevate the wound use warm moist packs to the area and monitor for worsening symptoms. Patient reported understanding and agreed to plan. Discharge Plan Discharge Patient Disposition: Home Clinical Impression: Puncture wound Condition: Stable Prescriptions: New clindamycin HCl 150 mg capsule 450 mg PO Q8H 7 Days Qty: 63 RF: 0 ibuprofen 800 mg tablet 800 mg PO TID PRN (Reason: pain) Qty: 30 RF: 0 No Action Reglan 10 mg tablet 10 mg PO Q6H PRN (Reason: nausea and vomiting) Qty: 30 RF: 0 Zofran 4 mg tablet 4 mg PO Q6H PRN (Reason: nausea and vomiting) Qty: 14 RF: 0 Discharge Orders: Discharge ED (Routine); Ordered 10/17/20 Ordered By: Felipe Laughlin Referrals: Charity Alas, DELIVERY AGENT-C [Primary Care Provider] - Discharge Diet: Usual diet Discharge Activity: Increase activity as tolerated Patient Instructions: Puncture Wound (ED), Opioid Safety Activity Restrictions/Additional Instructions: Home and rest. Elevate leg. Use acetaminophen and ibuprofen for pain. Take antibiotic clindamycin 450 mg 3 times a day for the next 7 days. Use warm moist heat to the area for comfort and to promote drainage if needed. Drink plenty of water with medications. Follow-up with primary care as needed. Return to the ER for worsening symptoms or new concerns. Coding Level of Care Code ED Loading Machine Adjuster for Terrance Obregon
[2020-10-17 02:08] VITALS: BP 142/76; PULSE 70; RESP 16; O2SAT 97
[2020-10-17] MEDS: clindamycin 150 mg Capsule 450 MG PO (02:08)
[2020-10-17] MEDS: ibuprofen 800 mg tablet PO (02:08)
== END 2020-10-17 02:09 | disposition home or self-care (01) ==
PROVIDERS: Emergency Provider Nurse Practitioner Family; PCP Nurse Practitioner
DX: S81.832A Puncture wound without foreign body, left lower leg, initial encounter (principal); W26.8XXA Contact with other sharp object(s), not elsewhere classified, initial encounter; F17.210 Nicotine dependence, cigarettes, uncomplicated
CPT/HCPCS: 73590; 99283

== ENCOUNTER 2021-02-15 16:14 | Emergency (ER) | payer SELFPAY ==
[2021-02-15 16:32] VITALS: BP 145/75; PULSE 77; RESP 16; TEMP 37.1; O2SAT 98
--- NOTE | 2021-02-15 16:58 | ED_ITS ---
HPI - Nausea/Vomiting/Diarrhea General: Chief complaint: Nausea/Vomiting/Diarrhea Stated complaint: n/v/d Time Seen by Provider: 02/15/21 16:58 History of Present Illness: HPI Narrative: Mr. Randall is a 40-year-old gentleman without significant past medical history who presents to the emergency department due to nausea, vomiting, and abdominal pain. Symptom onset was subacute at approximately 9 PM last night. He did eat out but denies any other specific known provoking factor. Since symptom onset symptoms have persisted. Intensity is moderate to severe. Pain is aching/sharp in quality. No significant radiation. Denies hematemesis. No urinary symptoms or diarrhea. Denies frequent episodes in the past. No other specific changes in health, exacerbating, relieving factors identified. Review of Systems General: Reports: 10 or more systems reviewed and unremarkable except in HPI and below PFSH ED PFSH: Social History Smoking and tobacco status: current every day smoker Physical Exam Narrative: EXAM NARRATIVE: GENERAL/CONSTITUTIONAL -somewhat ill-appearing. Uncomfortable Eyes - PERRL, no conjunctival injection ENMT - Atraumatic external nose and ears. Moist mucous membranes NECK - supple. trachea midline CARDIOVASCULAR - regular rate and rhythm. RESPIRATORY -clear to auscultation bilaterally. . ABDOMEN/GI -generalized tenderness palpation worse in the epigastric region. No evidence of remote peritonitis. MSK - Extremities without obvious deformity or tenderness to palpation SKIN - Warm, Dry NEURO - alert and appropriately oriented. Moves all extremities equally. PSYCH - Appropriate mood and affect Course ED course: - Patient was seen and evaluated by me at bedside - Patient placed on cardiac monitors, IV access obtained - Initial evaluation notable for exam as above -Symptom treatment - Labs notable for leukocytosis, hemoconcentration. No acute electrolyte derangement, given hemolysis potassium replenishment ordered. No evidence of urinary infection. - Upon reassessment patient appears somewhat worse clinically and therefore imaging warranted. - Imaging notable for no acute finding to explain patient's symptoms - Patient improved with additional treatment. - Based on patient history, evaluation, labs, and imaging as interpreted the most likely cause of the patient's condition is unspecified nausea, vomiting, and abdominal pain - The results of ED evaluation were discussed with the patient including prescriptions and/or symptomatic cares (if applicable) including appropriate and responsible use, followup plan, and return precautions. The patient verbalized understanding and felt safe for discharge. - Patient discharged in satisfactory condition. Vital Signs: Vital signs: Vital Signs Temperature 98.8 F 02/15/21 16:32 Pulse Rate 73 02/15/21 17:04 Respiratory Rate 16 02/15/21 19:05 Blood Pressure 138/74 02/15/21 17:04 Pulse Oximetry 99 02/15/21 17:04 MDM - Nausea/Vomiting/Diarrhea Medical Records: Attestation: I reviewed the patient's medical records. Lab Data: Attestation: I reviewed the patient's lab results. Labs: Lab Results 02/15/21 02/15/21 02/15/21 14:59 14:59 17:56 WBC 12.0 10^3/uL H 10 ^3/uL (4.0-10.0) RBC 5.54 10^6/uL H 10 ^6/uL (4.1-5.3) Hgb 16.3 g/dL g/dL (11.7-16.6) Hct 47.6 % % (42.0-52.0) MCV 85.9 fl fl (80-94) MCH 29.4 pg pg (28.0-34.0) MCHC 34.2 g/dL g/dL (30.0-36.0) RDW 12.1 % % (12.1-15.1) Plt Count 265 10^3/cmm 10^3 /cmm (130-400) MPV 10.5 fL H fL (7.4-10.4) Neut % (Auto) 88.5 % % Lymph % (Auto) 6.2 % % [place] % (Auto) 5.0 % % Eos % (Auto) 0.0 % % Baso % (Auto) 0.1 % % Neut # (Auto) 10.63 10^3/uL H 1 0^3/uL (1.8-7.7) Lymph # (Auto) 0.8 10^3/uL 10^3/ uL (0.8-4.8) [place] # (Auto) 0.6 10^3/uL 10^3/ uL (0.2-0.9) Eos # (Auto) 0.0 10^3/uL 10^3/ uL (0.0-0.8) Baso # (Auto) 0.0 10^3/uL 10^3/ uL (0.0-0.1) Nucleated RBC % (a uto) 0 % % Nucleated RBCs # 0.0 /100WBC /100W BC Sodium 138 mmol/L mmol/L (136-145) Potassium 3.5 mmol/L mmol/L (3.5-5.1) Chloride 98 mmol/L mmol/L (98-107) Carbon Dioxide 27 mmol/L mmol/L (22-29) Anion Gap 16.5 (5-19) BUN 10 mg/dL mg/dL (6-20) Creatinine 0.8 mg/dL mg/dL (0.7-1.2) GFR Calculation 106.5 mL/min mL/m in (90-130) Glucose 126 mg/dL H mg/dL (65-115) Calculated Osmolal ity 287 mOsm/kg mOsm/ kg (285-295) Calcium 9.2 mg/dL mg/dL (8.5-10.5) Total Bilirubin 0.3 mg/dL mg/dL (0.15-1.2) AST 17 U/L U/L (0-40) ALT 19 U/L U/L (0-41) Alkaline Phosphata se 78 IU/L IU/L (40-130) Total Protein 7.2 g/dL g/dL (6.6-8.7) Albumin 4.5 g/dL g/dL (3.5-5.2) Globulin 2.7 g/dL g/dL (1.3-4.6) Lipase 15 U/L U/L (13-60) Urine Color Yellow (Yellow) Urine Appearance Clear (CLEAR) Urine pH 8 H (5-7) Ur Specific Gravit y 1.010 (1.005-1.030) Urine Protein Neg (Negative) Urine Glucose (UA) Norm (Normal) Urine Ketones Negative (Negative) Urine Blood Neg (Negative) Urine Nitrate Negative (Negative) Urine Bilirubin Neg (Negative) Prot Sulfosalicyli c Acd Negative (Negative) Urine Urobilinogen Norm mg/dL mg/dL (Negative) Ur Leukocyte Radha ase Negative (Negative) 02/15/21 20:35 WBC RBC Hgb Hct MCV MCH MCHC RDW Plt Count MPV Neut % (Auto) Lymph % (Auto) [place] % (Auto) Eos % (Auto) Baso % (Auto) Neut # (Auto) Lymph # (Auto) [place] # (Auto) Eos # (Auto) Baso # (Auto) Nucleated RBC % (a uto) Nucleated RBCs # Sodium Potassium Chloride Carbon Dioxide Anion Gap BUN Creatinine GFR Calculation Glucose Calculated Osmolal ity Calcium Total Bilirubin AST ALT Alkaline Phosphata se Total Protein Albumin Globulin Lipase 47 U/L U/L (13-60) Urine Color Urine Appearance Urine pH Ur Specific Gravit y Urine Protein Urine Glucose (UA) Urine Ketones Urine Blood Urine Nitrate Urine Bilirubin Prot Sulfosalicyli c Acd Urine Urobilinogen Ur Leukocyte Radha ase Discharge Plan Discharge Patient Disposition: Home Clinical Impression: Nausea & vomiting, Dehydration, Abdominal pain, epigastric Condition: Stable Prescriptions: New Protonix 40 mg tablet,delayed release (DR/EC) 40 mg PO BID 10 Days Qty: 20 RF: 0 No Action Reglan 10 mg tablet 10 mg PO Q6H PRN (Reason: nausea and vomiting) Qty: 30 RF: 0 ibuprofen 800 mg tablet 800 mg PO TID PRN (Reason: pain) Qty: 30 RF: 0 Zofran 4 mg tablet 4 mg PO Q6H PRN (Reason: nausea and vomiting) Qty: 14 RF: 0 Discharge Orders: Discharge ED (Routine); Ordered 02/15/21 Ordered By: Mark Velasquez Referrals: Charity Alas, ACIDITY TESTER-C [Primary Care Provider] - Discharge Diet: Advance as tolerated and Clear Liquid Discharge Activity: Resume usual activity Patient Instructions: Acute Nausea and Vomiting (ED), Abdominal Pain (ED), Opio id Safety Activity Restrictions/Additional Instructions: Thank you for visiting the emergency department. You were seen and evaluated for nausea vomiting as well as abdominal pain. The exact cause of your symptoms is unclear. You will be given a prescription for nausea medication. Please follow-up with your primary care provider. Return to the emergency department for anything that you are concerned about and feel needs emergency department evaluation. Coding Level of Care Code ED Mud Cleaner Operator for Terrance Obregon
[2021-02-15 17:04] VITALS: BP 138/74; PULSE 73; RESP 16; O2SAT 99
[2021-02-15 17:10] LABS: Basophils % 0.1 %; Hematocrit 47.6 % (42.0-52.0); Hemoglobin 16.3 g/dL (11.7-16.6); Lymphocytes # 0.8 10^3/uL (0.8-4.8); Lymphocytes % 6.2 %; Mean Corpuscular HGB Conc 34.2 g/dL (30.0-36.0); Mean Corpuscular Hemoglobin 29.4 pg (28.0-34.0); Mean Corpuscular Volume 85.9 fl (80-94); Mean Platelet Volume 10.5 fL (7.4-10.4); Monocytes # 0.6 10^3/uL (0.2-0.9); Neutrophils # 10.63 10^3/uL (1.8-7.7); Neutrophils % 88.5 %; Nucleated Red Blood Cells % 0 %; Platelet Count 265 10^3/cmm (130-400); Red Blood Count 5.54 10^6/uL (4.1-5.3); Red Cell Distribution Width 12.1 % (12.1-15.1)
[2021-02-15] MEDS: ondansetron 2 mg/ML SDV 2 mL 4 MG IVP ×2 (17:23→19:06)
[2021-02-15] MEDS: sodium chloride 0.9% 1,000 ML 999 ML IV (17:23)
[2021-02-15 17:31] LABS: Alanine Aminotransferase 19 U/L (0-41); Albumin Level 4.5 g/dL (3.5-5.2); Alkaline Phosphatase 78 IU/L (40-130); Aspartate Amino Transferase 17 U/L (0-40); Blood Urea Nitrogen 10 mg/dL (6-20); Calcium 9.2 mg/dL (8.5-10.5); Carbon Dioxide 27 mmol/L (22-29); Chloride 98 mmol/L (98-107); Creatinine Clr Calc Pharmacy 142.3936; Globulin 2.7 g/dL (1.3-4.6); Glomerular Filtration Rate 106.5 mL/min (90-130); Glucose 126 mg/dL (65-115); Lipase 15 U/L (13-60); Osmolality Calculated 287 mOsm/kg (285-295); Sodium 138 mmol/L (136-145); Total Bilirubin 0.3 mg/dL (0.15-1.2); Total Protein 7.2 g/dL (6.6-8.7)
[2021-02-15 17:36] LABS: Anion Gap 16.5 (5-19); Potassium 3.5 mmol/L (3.5-5.1)
[2021-02-15 18:34] LABS: Add Urine Microscopic? NO; Charge for UA Resulting for Rev
[2021-02-15 18:49] LABS: Bilirubin Urine Neg (Negative); Blood Urine Neg (Negative); Glucose Urine UA Norm (Normal); Ketones Urine Negative (Negative); Leukocyte Esterase Urine Negative (Negative); Nitrate Urine Negative (Negative); Protein Urine Neg (Negative); Sulfosalicylic Acid Urine Negative (Negative); Urine Appearance Clear (CLEAR); Urine Color Yellow (Yellow); Urobilinogen Urine Norm (Negative); pH Urine 8 (5-7)
--- NOTE | 2021-02-15 18:56 | CTR_ITS ---
PROCEDURE INFORMATION: Exam: CT Abdomen And Pelvis With Contrast Exam date and time: 02/15/2021 6:56 PM Age: 40 years old Clinical indication: Nausea and vomiting; Abdominal pain; Generalized; Additional info: Epigastric pain TECHNIQUE: Imaging protocol: Computed tomography of the abdomen and pelvis with contrast. Axial, coronal and sagittal reformatted images were created and reviewed. Radiation optimization: All CT scans at this facility use at least one of these dose optimization techniques: automated exposure control; mA and/or kV adjustment per patient size (includes targeted exams where dose is matched to clinical indication); or iterative reconstruction. Contrast material: OMNI 300; Contrast volume: 95 ml; Contrast route: INTRAVENOUS (IV); COMPARISON: CT abdomen pelvis w con* [id number] 08/31/2019 8:17 AM RADIATION DOSE METRICS: Total DLP (mGy-cm): 1785.18 FINDINGS: Diaphragm: Small hiatal hernia. Liver: 7 mm low-density lesion in the right hepatic lobe, too small to characterize. Gallbladder and bile ducts: No radiodense gallstones. No biliary ductal dilatation. Pancreas: Unremarkable. Spleen: Unremarkable. Adrenal glands: Normal. No mass. Kidneys and ureters: 4 mm low-density right renal lesion, too small to characterize. No radiodense calculi. No hydronephrosis. Stomach and bowel: No bowel wall thickening. No obstruction. No pneumatosis. Appendix: Normal. Intraperitoneal space: No free fluid. No organized fluid collection. No free air. Vasculature: Unremarkable. No aneurysm. Lymph nodes: No pathologically enlarged lymph nodes. Urinary bladder: Unremarkable as visualized. Reproductive: Unremarkable. Bones/joints: No acute osseous abnormality. Mild degenerative changes. Soft tissues: Unremarkable. CT/CT abdomen pelvis w con* [id number]: 1[address] No CT evidence of acute intra-abdominal or pelvic pathology. 2. Additional findings, as above. COMMENTS: Consistent with the [employer]'s Incidental Findings Committee white paper (J Am Naima Radiol 2018): Any incidental renal lesion less than 1 cm or classified as too small to characterize, or any incidental cystic renal lesion characterized as simple-appearing, is likely benign. No follow-up imaging is recommended for these lesions per consensus recommendations based on imaging criteria.
[2021-02-15 19:05] VITALS: RESP 16
[2021-02-15] MEDS: morphine 4 mg/mL SDV 1 mL IVP (19:05)
[2021-02-15] MEDS: iohexol 300 mg/mL 100 mL Btl IV (19:15)
[2021-02-15 20:57] LABS: Lipase 47 U/L (13-60)
[2021-02-15] MEDS: ondansetron 4 MG Tablet PO (21:04)
== END 2021-02-15 21:11 | disposition home or self-care (01) ==
PROVIDERS: Nurse Practitioner Family; Emergency Provider Emergency Medicine; PCP Nurse Practitioner
DX: R11.2 Nausea with vomiting, unspecified (principal); E86.0 Dehydration; R10.13 Epigastric pain; F17.210 Nicotine dependence, cigarettes, uncomplicated
CPT/HCPCS: 74177; 80053; 81003; 83690; 85025; 96361; 96374; 96375; 96376; 99283; J2270; J2405; J7030; Q0162; Q9967

== ENCOUNTER 2021-09-04 19:11 | Emergency (ER) | payer BC, MEDICAID, SELFPAY ==
[2021-09-04 19:15] VITALS: BP 135/81; PULSE 77; RESP 16; TEMP 36.6; O2SAT 100
[2021-09-04 22:00] VITALS: PULSE 90; RESP 13; O2SAT 98
--- NOTE | 2021-09-04 22:07 | XRR_ITS ---
PROCEDURE INFORMATION: Exam: XR Chest Exam date and time: 09/04/2021 10:17 PM Age: 41 years old Clinical indication: Angina; Additional info: Cp TECHNIQUE: Imaging protocol: Radiologic exam of the chest. Views: 1 view. COMPARISON: CT abdomen pelvis w con* [id number] 02/15/2021 7:14 PM FINDINGS: Lungs: No consolidation. Pleural spaces: Unremarkable. No pleural effusion. No pneumothorax. Heart/Mediastinum: No cardiomegaly. Bones/joints: No acute findings. XR/XR chest 1V portable [id number] IMPRESSION: No acute findings.
--- NOTE | 2021-09-04 22:07 | ECG_ITS ---
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 Measurements Intervals [place] Rate: 62 P: 68 MI: 137 QRS: 75 QRSD: 90 T: 59 QT: 398 QTc: 407 Interpretive Statements SINUS RHYTHM WITH OCCASIONAL SUPRAVENTRICULAR PREMATURE COMPLEXES No previous ECG available for comparison Electronically Signed On 09-04-2021 22:44:05 CDT by Kira Branham M.D. [email or web address].[employer]/store/OM/[id number]
--- NOTE | 2021-09-04 22:09 | W.ED.NAVMDI ---
HPI - Nausea/Vomiting/Diarrhea General: Chief complaint: Nausea/Vomiting/Diarrhea Stated complaint: over heated, N/V Time Seen by Provider: 09/04/21 19:20 History of Present Illness: Patient is a 41-year-old male comes to the ED with epigastric pain, nausea and vomiting. Symptoms started last night. Patient says he was working on a hot roof all day yesterday before symptoms started. He feels like he got a little dehydrated and then started getting nauseous and was vomiting. He has a history of acid reflux but does not currently take anything to treat acid reflux. Since onset of symptoms he has not been able to keep any food or fluids down and any drinking or eating worsens epigastric pain and nausea. He endorses having some epigastric pain currently that radiates up into his chest. Chest pain started after the nausea and vomiting began. He states that he feels really dry and has been having some muscle cramps in his legs and arms. Associated nausea: Yes Associated symtoms: Reports chest pain (Epigastric chest pain) and nausea; Denies change in vision, dysuria, fatigue, headache(s) or palpitations Review of Systems Const: Denies: fever(s), chills or fatigue Eyes: Denies: change in vision or eye discomfort ENMT: Denies: throat pain, odynophagia, nasal discharge or nasal congestion Card: Reports: chest pain (Epigastric chest pain); Denies: palpitations, edema, swelling of feet/ankles, dyspnea on exertion or orthopnea Resp: Denies: dyspnea, productive cough or non-productive cough GI: Reports: abdominal pain (Epigastric), nausea, vomiting and diarrhea; Denies: hematemesis, constipation, hematochezia or melena : Denies: flank pain, difficulty urinating, dysuria or hematuria Musc: Reports: muscle cramps (Throughout extremities bilaterally); Denies: neck pain, back pain or extremity swelling Skin/Breast: Denies: rash or new lesions Neuro: Denies: headache(s), numbness in extremities or weakness in extremities PFSH ED PFSH: Medical History Acid reflux No pertinent family history Social History Smoking and tobacco status: current every day smoker Physical Exam Const: COMMON NORMALS: patient oriented x3 and alert GENERAL APPEARANCE: cooperative OTHER: Patient's oral mucous membranes appear very dry. HENMT: COMMON NORMALS: normocephalic HEAD & SCALP: normocephalic MOUTH: moist mucous membranes abnormal Details: parched THROAT: posterior oropharynx normal and uvula midline Eye: COMMON NORMALS: Equal, round and reactive pupils present and conjunctivae normal CONJUNCTIVA: Yes conjunctivae normal PUPIL: Yes Equal, round and reactive pupils present Neck/C-Spine: COMMON NORMALS: supple GENERAL: Yes normal visual inspection Resp: COMMON NORMALS: normal respiratory effort, No retractions, No use of accessory muscles and clear to auscultation bilaterally AUSCULTATION: clear to auscultation bilaterally Cardio: COMMON NORMALS: regular rate, regular rhythm, S1 normal heart sound present, S2 normal heart sound present, No gallops present (Cardio), No clicks present (Cardio), No murmurs present (Cardio) and Peripheral pulses 2+ throughout RATE: regular rate RHYTHM: regular rhythm HEART SOUNDS: S1 normal heart sound present and S2 normal heart sound present PERIPHERAL PULSES: Peripheral pulses 2+ throughout GI: COMMON NORMALS: Normal to inspection, nondistended, normoactive bowel sounds present, Soft to palpation and no masses PALPATION: Yes Soft to palpation and Yes Tenderness to palpation present (GI) (Epigastric tenderness) : COMMON NORMALS: Yes no CVA tenderness BLADDER/KIDNEY EXAM: Yes no CVA tenderness Back/Pelvis: COMMON NORMALS: no CVA tenderness Extremity: COMMON NORMALS: normal to inspection Neuro: COMMON NORMALS: patient oriented x3 and moves all extremities SENSORIUM/ORIENTATION: Yes alert Skin: GENERAL SKIN EXAM: dry skin Course Reevaluation(s): Reevaluation #1: I went in to reevaluate patient after he received 1 L of IV fluids, Zofran and Pepcid. Patient said his symptoms have improved greatly. His nausea has almost resolved and his burning epigastric pain has completely resolved. He states that he is feeling quite a bit better. Time: 23:40 Vital Signs: Vital signs: Vital Signs Temperature 97.8 F 09/04/21 19:15 Pulse Rate 60 09/05/21 00:00 Respiratory Rate 20 H 09/05/21 00:00 Blood Pressure 108/57 09/05/21 00:00 Pulse Oximetry 98 09/05/21 00:00 MDM - Nausea/Vomiting/Diarrhea Medical Decision Making Patient is a 41-year-old male comes to the ED with epigastric pain, nausea and vomiting. Symptoms started last night. Patient says he was working on a hot roof all day yesterday before symptoms started. He feels like he got a little dehydrated and then started getting nauseous and was vomiting. He has a history of acid reflux but does not currently take anything to treat acid reflux. Since onset of symptoms he has not been able to keep any food or fluids down and any drinking or eating worsens epigastric pain and nausea. Denies any bloody emesis, blood in the stool or black stool. vitals are stable. Patient had palpable epigastric tenderness and dry oral mucous membranes. Labs were unremarkable. Troponin negative. EKG showed no acute findings. Chest x-ray showed no acute findings. CT of abdomen pelvis showed possible enteritis. Patient was given 2 L of IV fluids and nausea meds along with IV Pepcid and his symptoms improved greatly. Patient's symptoms likely due to heat exhaustion and then he developed some gastritis as well. He was stable for discharge home and sent with a prescription for Pepcid and Reglan. He was told to follow-up with his PCP in the next week for reevaluation. Return to ED precautions given. Patient understood agree with plan. Lab Data I reviewed the patient's lab results. : 09/04/21 22:35 09/04/21 22:35 Radiology Impressions Chest X-Ray 09/04/21 22:07 IMPRESSION: No acute findings. Abdomen/Pelvis CT 09/04/21 23:36 IMPRESSION: 1. Some loops of distal ileal small bowel with mild bowel wall thickening (series 3 images 62 to 67). These are nonspecific findings that can be seen with enteritis or inflammatory bowel disease. The lack of orally administered contrast material limits assessment. Follow-up may be performed with CT with oral contrast administration or small-bowel follow-through exam. Laboratory Results WBC 13.4 10^3/uL (4.0-10.0) H 09/04/21 22:35 RBC 6.16 10^6/uL (4.1-5.3) H 09/04/21 22:35 Hgb 18.1 g/dL (11.7-16.6) H 09/04/21 22:35 Hct 51.7 % (42.0-52.0) 09/04/21: MCV 83.9 fl (80-94) 09/04/21: MCH 29.4 pg (28.0-34.0) 09/04/21: MCHC 35.0 g/dL (30.0-36.0) 09/04/21: RDW 12.4 % (12.1-15.1) 09/04/21: Plt Count 256 10^3/cmm (130-400) 09/04/21: MPV 10.2 fL (7.4-10.4) 09/04/21: Neut % (Auto) 85.1 % 09/04/21: Lymph % (Auto) 8.2 % 09/04/21: [place] % (Auto) 6.3 % 09/04/21: Eos % (Auto) 0.0 % 09/04/21: Baso % (Auto) 0.1 % 09/04/21: Neut # (Auto) 11.42 10^3/uL (1.8-7.7) H 09/04/21: Lymph # (Auto) 1.1 10^3/uL (0.8-4.8) 09/04/21: [place] # (Auto) 0.8 10^3/uL (0.2-0.9) 09/04/21: Eos # (Auto) 0.0 10^3/uL (0.0-0.8) 09/04/21: Baso # (Auto) 0.0 10^3/uL (0.0-0.1) 09/04/21: Nucleated RBC % (auto) 0 % 09/04/21: Nucleated RBCs # 0.0 /100WBC 09/04/21: Sodium 135 mmol/L (136-145) L 09/04/21: Potassium 3.7 mmol/L (3.5-5.1) 09/04/21: Chloride 93 mmol/L (98-107) L 09/04/21: Carbon Dioxide 28 mmol/L (22-29) 09/04/21 22:35 Anion Gap 17.7 (5-19) 09/04/21 22:35 BUN 26 mg/dL (6-20) H 09/04/21 22:35 Creatinine 1.0 mg/dL (0.7-1.2) 09/04/21 22:35 GFR Calculation 81.9 mL/min (90-130) L 09/04/21 22:35 Glucose 110 mg/dL (65-115) 09/04/21 22:35 Calculated Osmolality 285 mOsm/kg (285-295) 09/04/21 22:35 Calcium 10.3 mg/dL (8.5-10.5) 09/04/21 22:35 Total Bilirubin 0.8 mg/dL (0.15-1.2) 09/04/21 22:35 AST 29 U/L (0-40) 09/04/21 22:35 ALT 21 U/L (0-41) 09/04/21 22:35 Alkaline Phosphatase 95 IU/L (40-130) 09/04/21 22:35 Troponin T Baseline 8 ng/L (0-15) 09/04/21 22:35 Troponin T 120 Minute 8.72 ng/L (0-15) 09/05/21 01:20 Delta Troponin T 0.72 ABS# (0-10) 09/05/21 01:20 Total Protein 8.2 g/dL (6.6-8.7) 09/04/21 22:35 Albumin 5.3 g/dL (3.5-5.2) H 09/04/21 22:35 Globulin 2.9 g/dL (1.3-4.6) 09/04/21 22:35 Lipase 27 U/L (13-60) 09/04/21 22:35 H. pylori IgG Antibody Negative (Negative) 09/04/21 22:35 EKG Data EKG 1: EKG interpretation date: 09/04/21 Interpretation: Sinus rhythm, no ST segment elevation or depression seen. 62 bpm. Occasional supraventricular premature complexes noted. EKG 2: EKG interpretation date: 09/05/21 Interpretation: 2-hour EKG?sinus bradycardia, [address] segment elevation or depression seen. No acute change when comparing it to initial EKG done today. Discharge Plan Discharge Patient Disposition: Home Clinical Impression: Heat exhaustion Qualifiers: Encounter type: initial encounter Qualified Code(s): T67.5XXA - Heat exhaustion, unspecified, initial encounter Gastritis Qualifiers: Gastritis type: unspecified gastritis Chronicity: unspecified Gastritis bleeding: without bleeding Qualified Code(s): K29.70 - Gastritis, unspecified, without bleeding Condition: Stable Prescriptions: New Pepcid 20 mg tablet 20 mg PO BID 42 Days Qty: 84 0RF Reglan 10 mg tablet 10 mg PO Q6H PRN (Reason: nausea and vomiting) Qty: 20 0RF No Action Reglan 10 mg tablet 10 mg PO Q6H PRN (Reason: nausea and vomiting) Qty: 30 0RF ibuprofen 800 mg tablet 800 mg PO TID PRN (Reason: pain) Qty: 30 0RF Zofran 4 mg tablet 4 mg PO Q6H PRN (Reason: nausea and vomiting) Qty: 14 0RF Discharge Orders: Discharge ED (Routine); Ordered 09/05/21 Ordered By: Han Dillard Referrals: Charity Alas, HOSPITALITY COORDINATOR-C [Primary Care Provider] - Discharge Diet: Advance as tolerated and Clear Liquid Discharge Activity: Increase activity as tolerated Patient Instructions: Gastritis (ED), Heat Exhaustion (ED) Activity Restrictions/Additional Instructions: Follow-up with medical provider as directed in the next 7 to 10 days for reevaluation. Clear liquid diet for the next 24 hours and advance slowly as tolerated. Take medications as prescribed. Return to the ER or your medical provider if condition worsens. Please read and understand discharge instructions. Thank you for choosing [facility] for your healthcare needs today. Please realize this is an emergency room and that we are providing you with a medical screening exam and this may not be complete and all inclusive of all the testing and or work up that you may need to determine your ailment or severity of your illness. It is very important that you follow up as instructed or that you return to the Emergency Department should you have concerns or if your condition changes or worsens in any way. Coding Level of Care Code ED Physical Therapist Clinic Director for [facility] [place] Exam Comprehensive
[2021-09-04 22:46] LABS: Basophils % 0.1 %; Hematocrit 51.7 % (42.0-52.0); Hemoglobin 18.1 g/dL (11.7-16.6); Lymphocytes # 1.1 10^3/uL (0.8-4.8); Lymphocytes % 8.2 %; Mean Corpuscular Hemoglobin 29.4 pg (28.0-34.0); Mean Corpuscular Volume 83.9 fl (80-94); Mean Platelet Volume 10.2 fL (7.4-10.4); Monocytes # 0.8 10^3/uL (0.2-0.9); Monocytes % 6.3 %; Neutrophils # 11.42 10^3/uL (1.8-7.7); Neutrophils % 85.1 %; Nucleated Red Blood Cells % 0 %; Platelet Count 256 10^3/cmm (130-400); Red Blood Count 6.16 10^6/uL (4.1-5.3); Red Cell Distribution Width 12.4 % (12.1-15.1); White Blood Count 13.4 10^3/uL (4.0-10.0)
[2021-09-04] MEDS: ondansetron 2 mg/ML SDV 2 mL 4 MG IVP (22:57)
[2021-09-04] MEDS: famotidine 20 mg/2 mL INJ 40 MG IVP (22:57)
[2021-09-04] MEDS: sodium chloride 0.9% 1,000 ML 999 ML IV ×2 (22:58→23:55)
[2021-09-04 23:00] VITALS: BP 130/81; PULSE 62; RESP 20; O2SAT 96
[2021-09-04 23:06] LABS: Alanine Aminotransferase 21 U/L (0-41); Albumin Level 5.3 g/dL (3.5-5.2); Alkaline Phosphatase 95 IU/L (40-130); Anion Gap 17.7 (5-19); Aspartate Amino Transferase 29 U/L (0-40); Blood Urea Nitrogen 26 mg/dL (6-20); Calcium 10.3 mg/dL (8.5-10.5); Carbon Dioxide 28 mmol/L (22-29); Chloride 93 mmol/L (98-107); Globulin 2.9 g/dL (1.3-4.6); Glomerular Filtration Rate 81.9 mL/min (90-130); Glucose 110 mg/dL (65-115); Lipase 27 U/L (13-60); Osmolality Calculated 285 mOsm/kg (285-295); Potassium 3.7 mmol/L (3.5-5.1); Sodium 135 mmol/L (136-145); Total Bilirubin 0.8 mg/dL (0.15-1.2); Total Protein 8.2 g/dL (6.6-8.7); Troponin(5th) Baseline 8 ng/L (0-15)
[2021-09-04 23:18] LABS: H. Pylori IgG Antibody Negative (Negative)
[2021-09-04 23:30] VITALS: BP 124/76; PULSE 54; RESP 20; O2SAT 98
--- NOTE | 2021-09-04 23:36 | CTR_ITS ---
PROCEDURE INFORMATION: Exam: CT Abdomen And Pelvis Without Contrast Exam date and time: 09/05/2021 12:08 AM Age: 41 years old Clinical indication: Nausea and vomiting; Abdominal pain; Generalized; Additional info: Epigastric pain, n/v, diarrhea TECHNIQUE: Imaging protocol: Computed tomography of the abdomen and pelvis without contrast. Radiation optimization: All CT scans at this facility use at least one of these dose optimization techniques: automated exposure control; mA and/or kV adjustment per patient size (includes targeted exams where dose is matched to clinical indication); or iterative reconstruction. COMPARISON: CT abdomen pelvis w con* [id number] 02/15/2021 7:14 PM RADIATION DOSE METRICS: Total DLP (mGy-cm): 1211.83 FINDINGS: Lungs: The visualized portions of the lung bases are normal. Liver: The non-contrast enhanced liver shows unchanged 4 x 4 mm low-attenuation segment VIII lesion. This may represent a cyst or bile duct hamartoma. No further follow-up is necessary per ACR recommendations. Gallbladder and bile ducts: No calcified stones. No biliary ductal dilatation. Pancreas: The non-contrast enhanced pancreas appears grossly unremarkable. No ductal dilation. Spleen: The non-contrast enhanced spleen appears unremarkable. No splenomegaly. Adrenal glands: Unremarkable non-contrast CT appearance of the adrenals. No definte masses. Kidneys and ureters: No contour deforming masses seen on the non-contrast CT. No calcifications. No hydronephrosis or ureterectasis. Stomach and bowel: The non-contrast opacified stomach is not well distended, limiting assessment. No gross abnormalities seen. The noncontrast opacified small bowel loops show some loops of distal ileal small bowel with mild bowel wall thickening (series 3 images 62 to 67). These are nonspecific findings that can be seen with enteritis or inflammatory bowel disease. The lack of orally administered contrast material limits assessment. Follow-up may be performed with CT with oral contrast administration or small-bowel follow-through exam. The noncontrast opacified colonic loops show some scattered colonic diverticula, without CT evidence of diverticulitis. Appendix: No CT evidence of appendicitis. Intraperitoneal space: No abdominal ascites. No free air. There are numerous benign phleboliths in the pelvis. Tiny umbilical hernia is seen, containing peritoneal fat. Vasculature: See Intraperitoneal space finding. Lymph nodes: No enlarged lymph nodes. Urinary bladder: Unremarkable as visualized. Reproductive: Unremarkable as visualized. Bones/joints: No acute osseous abnormality seen. Soft tissues: Unremarkable. CT/CT abdomen pelvis wo con [id number] IMPRESSION: 1. Some loops of distal ileal small bowel with mild bowel wall thickening (series 3 images 62 to 67). These are nonspecific findings that can be seen with enteritis or inflammatory bowel disease. The lack of orally administered contrast material limits assessment. Follow-up may be performed with CT with oral contrast administration or small-bowel follow-through exam.
[2021-09-05] VITALS: BP 108/57; PULSE 60; RESP 20; O2SAT 98
--- NOTE | 2021-09-05 00:07 | ECG_ITS ---
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 Measurements Intervals [place] Rate: 55 P: 70 OR: 139 QRS: 71 QRSD: 90 T: 54 QT: 446 QTc: 428 Interpretive Statements SINUS BRADYCARDIA Compared to ECG 09/04/2021 22:21:52 Sinus rhythm no longer present Electronically Signed On 09-05-2021 17:16:19 CDT by Kira Branham M.D. [id number]
[2021-09-05 01:58] LABS: Troponin 5 2HR 8.72 ng/L (0-15)
[2021-09-05 02:12] LABS: Troponin 5 2HR Delta 0.72 ABS# (0-10)
[2021-09-05] MEDS: metoclopramide 5 mg/mL SDV 2 mL 10 MG IVP (02:18)
== END 2021-09-05 03:26 | disposition home or self-care (01) ==
PROVIDERS: Emergency Provider Physician Assistant; PCP Nurse Practitioner
DX: K29.70 Gastritis, unspecified, without bleeding (principal); T67.5XXA Heat exhaustion, unspecified, initial encounter; X30.XXXA Exposure to excessive natural heat, initial encounter; F17.210 Nicotine dependence, cigarettes, uncomplicated
CPT/HCPCS: 71045; 74176; 80053; 83690; 84484; 85025; 86677; 93005; 96361; 96374; 96375; 99285; J2405; J2765; J3490; J7030

== ENCOUNTER 2021-12-08 17:54 | Emergency (ER) | payer BC, MEDICAID, SELFPAY ==
[2021-12-08 18:30] VITALS: BP 120/68; PULSE 58; RESP 16; TEMP 36.7; O2SAT 98; BMI 29.1
[2021-12-08 19:50] LABS: Basophils % 0.1 %; Hematocrit 48.1 % (42.0-52.0); Hemoglobin 16.9 g/dL (11.7-16.6); Lymphocytes # 0.4 10^3/uL (0.8-4.8); Lymphocytes % 4.5 %; Mean Corpuscular HGB Conc 35.1 g/dL (30.0-36.0); Mean Corpuscular Hemoglobin 30.7 pg (28.0-34.0); Mean Corpuscular Volume 87.5 fl (80-94); Mean Platelet Volume 10.4 fL (7.4-10.4); Monocytes # 0.3 10^3/uL (0.2-0.9); Monocytes % 3.2 %; Neutrophils % 91.8 %; Nucleated Red Blood Cells % 0 %; Platelet Count 243 10^3/cmm (130-400); Red Cell Distribution Width 12.8 % (12.1-15.1); White Blood Count 9.2 10^3/uL (4.0-10.0)
[2021-12-08 20:10] LABS: Alanine Aminotransferase 21 U/L (0-41); Albumin Level 4.6 g/dL (3.5-5.2); Alkaline Phosphatase 85 U/L (40-130); Anion Gap 15.4 (5-19); Aspartate Amino Transferase 18 U/L (0-40); Blood Urea Nitrogen 11 mg/dL (6-20); Calcium 9.9 mg/dL (8.5-10.5); Carbon Dioxide 29 mmol/L (22-29); Chloride 97 mmol/L (98-107); Globulin 2.9 g/dL (1.3-4.6); Glomerular Filtration Rate 92.5 mL/min (90-130); Glucose 136 mg/dL (65-115); Lipase 19 U/L (13-60); Osmolality Calculated 285 mOsm/kg (285-295); Potassium 4.4 mmol/L (3.5-5.1); Sodium 137 mmol/L (136-145); Total Bilirubin 0.4 mg/dL (0.15-1.2); Total Protein 7.5 g/dL (6.6-8.7)
--- NOTE | 2021-12-08 20:32 | W.ED.ABDPA2 ---
HPI - Abdominal Pain General: Chief Complaint: Abdominal Pain Stated Complaint: N/V Time Seen by Provider: 12/08/21 20:26 Source: patient Mode of arrival: ambulatory Limitations: no limitations History of Present Illness: 41-year-old male states been having epigastric pain for some time he has been having vomiting as well he states he was supposed to be taking an antiacid along with Reglan he has not been taking it he states that he has been vomiting the last 2 days with a severe burning sensation in his abdomen. Denies any fevers. Denies any worsening proving factors. Associated Symptoms: Denies chills, diarrhea, dysuria, fever(s), nausea and vomiting Review of Systems Const: Denies: fever(s), chills, body aches or change in appetite Eyes: Denies: blurry vision or eye discomfort ENMT: Denies: throat pain or dental pain Card: Denies: chest pain Resp: Denies: dyspnea GI: Reports: abdominal pain; Denies: nausea, vomiting or diarrhea : Denies: dysuria Musc: Denies: neck pain or back pain Skin/Breast: Denies: rash Neuro: Denies: headache(s) Psych: Denies: depression [place]/Lymph: Denies: easy bruising All/Imm: Denies: urticaria PFSH ED PFSH: Medical History Acid reflux No pertinent family history Social History Smoking and tobacco status: current every day smoker Physical Exam Const: COMMON NORMALS: no acute distress, patient oriented x3 and healthy appearing HENMT: COMMON NORMALS: normocephalic and atraumatic HEAD & SCALP: normocephalic and atraumatic Eye: COMMON NORMALS: Equal, round and reactive pupils present and EOMs intact bilaterally PUPIL: Yes Equal, round and reactive pupils present Neck/C-Spine: COMMON NORMALS: full ROM and supple Chest: COMMONS NORMALS: normal inspection of the chest and normal palpation of entire chest wall Resp: COMMON NORMALS: normal respiratory effort, No retractions, No use of accessory muscles and clear to auscultation bilaterally AUSCULTATION: clear to auscultation bilaterally Cardio: COMMON NORMALS: regular rate, regular rhythm and No murmurs present (Cardio) RATE: regular rate RHYTHM: regular rhythm GI: COMMON NORMALS: Normal to inspection, nondistended, normoactive bowel sounds present, Soft to palpation, non-tender and no masses PALPATION: Yes Soft to palpation Extremity: COMMON NORMALS: normal to inspection and full ROM Neuro: COMMON NORMALS: patient oriented x3, moves all extremities and no focal motor deficits Psych: COMMON NORMALS: mental status grossly normal, Normal thought process present and cooperative THOUGHT PROCESS: Normal thought process present Skin: COMMON NORMALS: no rashes or lesions noted and no wounds GENERAL SKIN EXAM: no rashes or lesions noted Course Vital Signs: Vital signs: Vital Signs Temperature 98.1 F 12/08/21 18:30 Pulse Rate 58 L 12/08/21 18:30 Respiratory Rate 16 12/08/21 18:30 Blood Pressure 120/68 12/08/21 18:30 Pulse Oximetry 98 12/08/21 18:30 Oxygen Delivery Me thod 12/08/21 18:30 MDM - Abdominal Pain Medical Decision Making 41-year-old male who presents here with epigastric abdominal pain likely reflux he feels much improved after Reglan and a GI cocktail we will prescribe him Reglan for home along with Protonix he is to follow-up his PCP and return if worsening he understands agrees to plan. Lab Data : 12/08/21 19:15 12/08/21 19:15 Labs/Radiology: Laboratory Results WBC 9.2 10^3/uL (4.0-10.0) 12/08/21 19:15 RBC 5.50 10^6/uL (4.1-5.3) H 12/08/21 19:15 Hgb 16.9 g/dL (11.7-16.6) H 12/08/21 19:15 Hct 48.1 % (42.0-52.0) 12/08/21 19:15 MCV 87.5 fl (80-94) 12/08/21 19:15 MCH 30.7 pg (28.0-34.0) 12/08/21 19:15 MCHC 35.1 g/dL (30.0-36.0) 12/08/21 19:15 RDW 12.8 % (12.1-15.1) 12/08/21 19:15 Plt Count 243 10^3/cmm (130-400) 12/08/21 19:15 MPV 10.4 fL (7.4-10.4) 12/08/21 19:15 Neut % (Auto) 91.8 % 12/08/21 19:15 Lymph % (Auto) 4.5 % 12/08/21 19:15 [place] % (Auto) 3.2 % 12/08/21 19:15 Eos % (Auto) 0.0 % 12/08/21 19:15 Baso % (Auto) 0.1 % 12/08/21 19:15 Neut # (Auto) 8.40 10^3/uL (1.8-7.7) H 12/08/21 19:15 Lymph # (Auto) 0.4 10^3/uL (0.8-4.8) L 12/08/21 19:15 [place] # (Auto) 0.3 10^3/uL (0.2-0.9) 12/08/21 19:15 Eos # (Auto) 0.0 10^3/uL (0.0-0.8) 12/08/21 19:15 Baso # (Auto) 0.0 10^3/uL (0.0-0.1) 12/08/21 19:15 Nucleated RBC % (auto) 0 % 12/08/21 19:15 Nucleated RBCs # 0.0 /100WBC 12/08/21 19:15 Sodium 137 mmol/L (136-145) 12/08/21 19:15 Potassium 4.4 mmol/L (3.5-5.1) 12/08/21 19:15 Chloride 97 mmol/L (98-107) L 12/08/21 19:15 Carbon Dioxide 29 mmol/L (22-29) 12/08/21 19:15 Anion Gap 15.4 (5-19) 12/08/21 19:15 BUN 11 mg/dL (6-20) 12/08/21 19:15 Creatinine 0.9 mg/dL (0.7-1.2) 12/08/21 19:15 GFR Calculation 92.5 mL/min (90-130) 12/08/21 19:15 Glucose 136 mg/dL (65-115) H 12/08/21 19:15 Calculated Osmolality 285 mOsm/kg (285-295) 12/08/21 19:15 Calcium 9.9 mg/dL (8.5-10.5) 12/08/21 19:15 Total Bilirubin 0.4 mg/dL (0.15-1.2) 12/08/21 19:15 AST 18 U/L (0-40) 12/08/21 19:15 ALT 21 U/L (0-41) 12/08/21 19:15 Alkaline Phosphatase 85 U/L (40-130) 12/08/21 19:15 Total Protein 7.5 g/dL (6.6-8.7) 12/08/21 19:15 Albumin 4.6 g/dL (3.5-5.2) 12/08/21 19:15 Globulin 2.9 g/dL (1.3-4.6) 12/08/21 19:15 Lipase 19 U/L (13-60) 12/08/21 19:15 Urine Color Yellow (Yellow) 12/08/21 19:50 Urine Appearance Clear (CLEAR) 12/08/21 19:50 Urine pH 6 (5-7) 12/08/21 19:50 Ur Specific [place] 1.020 (1.005-1.030) 12/08/21 19:50 Urine Protein 1+ (Negative) H 12/08/21 19:50 Urine Glucose (UA) Norm (Normal) 12/08/21 19:50 Urine Ketones 1+ (Negative) H 12/08/21 19:50 Urine Blood Neg (Negative) 12/08/21 19:50 Urine Nitrate Negative (Negative) 12/08/21 19:50 Urine Bilirubin Neg (Negative) 12/08/21 19:50 Urine Urobilinogen Norm mg/dL (Negative) 12/08/21 19:50 Ur Leukocyte Esterase Negative (Negative) 12/08/21 19:50 Urine RBC 0-4 /hpf (0-2) H 12/08/21 19:50 Urine WBC None /hpf (0-5) 12/08/21 19:50 Ur Squamous Epith Cells 0-4 /hpf (0-5) H 12/08/21 19:50 Amorphous Sediment Not Reportable 12/08/21 19:50 Urine Bacteria Trace /hpf (NONE) 12/08/21 19:50 Urine Mucus 3+ /hpf 12/08/21 19:50 Discharge Plan Discharge Patient Disposition: Home Clinical Impression: Abdominal pain Condition: Stable Prescriptions: New Protonix 40 mg tablet,delayed release (DR/EC) 40 mg PO DAILY Qty: 60 0RF Continued metoclopramide HCl 10 mg tablet 10 mg PO Q6H PRN (Reason: nausea and vomiting) Qty: 30 0RF Discontinued metoclopramide HCl [Reglan] 10 mg tablet 10 mg PO Q6H PRN (Reason: nausea and vomiting) Qty: 20 0RF No Action ibuprofen 800 mg tablet 800 mg PO TID PRN (Reason: pain) Qty: 30 0RF Zofran 4 mg tablet 4 mg PO Q6H PRN (Reason: nausea and vomiting) Qty: 14 0RF Discharge Orders: Discharge ED (Routine); Ordered 12/08/21 Ordered By: Saul Narayanan Referrals: Charity Alas FNP-C [Primary Care Provider] - 1-3 days Discharge Diet: Advance as tolerated Discharge Activity: Resume usual activity Patient Instructions: Abdominal Pain (ED) Coding Level of Care Code ED Case Consultant for Chg Fwd Exam Comprehensive
[2021-12-08 20:35] LABS: Add Urine Microscopic? YES; Bilirubin Urine Neg (Negative); Blood Urine Neg (Negative); Glucose Urine UA Norm (Normal); Ketones Urine 1+ (Negative); Leukocyte Esterase Urine Negative (Negative); Nitrate Urine Negative (Negative); Protein Urine 1+ (Negative); Urine Appearance Clear (CLEAR); Urine Color Yellow (Yellow); Urobilinogen Urine Norm (Negative); pH Urine 6 (5-7)
[2021-12-08 20:36] LABS: Add Urine Culture? No; Bacteria Urine TRACE /hpf; Mucus Urine 3+ /hpf; RBC Urine 0-4 /hpf (0-2); Squamous Epithelial Cell Urine 0-4 /hpf (0-5)
[2021-12-08] MEDS: ondansetron 2 mg/ML SDV 2 mL 4 MG IVP (20:44)
[2021-12-08] MEDS: sodium chloride 0.9% 1,000 ML 999 ML IV (20:51)
[2021-12-08] MEDS: diphenhydrAMINE 50 mg/mL SDV 1mL IVP (20:51)
[2021-12-08] MEDS: metoclopramide 5 mg/mL SDV 2 mL 10 MG IVP (20:51)
[2021-12-08] MEDS: lidocaine 2% viscous 15 ML, aluminum-mag hydrox-simethicon 30 ML, sucralfate oral liq 1 GM PO (20:55)
== END 2021-12-08 22:41 | disposition home or self-care (01) ==
PROVIDERS: Nurse Practitioner Family; Emergency Provider Emergency Medicine; PCP Nurse Practitioner
DX: R10.9 Unspecified abdominal pain (principal); F17.210 Nicotine dependence, cigarettes, uncomplicated
CPT/HCPCS: 36415; 80053; 81001; 83690; 85025; 96361; 96374; 96375; 99284; J1200; J2405; J2765; J7030

== ENCOUNTER 2022-05-05 19:49 | Emergency (ER) | payer BC, MEDICAID, SELFPAY ==
[2022-05-05 19:55] VITALS: BP 204/101; PULSE 56; RESP 14; TEMP 37.1; O2SAT 98
--- NOTE | 2022-05-05 20:41 | W.ED.NAVMDI ---
HPI - Nausea/Vomiting/Diarrhea General: Chief complaint: Nausea/Vomiting/Diarrhea Stated complaint: n/v; dehydration Time Seen by Provider: 05/05/22 20:22 History of Present Illness: 41-year-old male patient comes in tonight with complaints of nausea and vomiting with abdominal pain starting last night. Patient reports that at about 1 AM early this morning he started having some discomfort. Patient endorses that it is related to the [employer] that he ate at last night. Patient has had similar episodes in the past. Patient does smoke tobacco, occasionally use alcohol, and marijuana. Last use of marijuana was last night. Patient reports no fever, no blood in vomit or stool. Associated nausea: Yes Associated symtoms: Reports nausea; Denies chest pain Review of Systems General: Reports: 10 or more systems reviewed and unremarkable except in HPI and below Const: Denies: fever(s) Card: Denies: chest pain Resp: Denies: dyspnea GI: Reports: nausea, vomiting and diarrhea; Denies: constipation : Denies: difficulty urinating Skin/Breast: Denies: rash PFSH ED PFSH: Medical History Acid reflux No pertinent family history Social History Smoking and tobacco status: current every day smoker Physical Exam Const: COMMON NORMALS: alert HENMT: COMMON NORMALS: normocephalic HEAD & SCALP: normocephalic MOUTH: Normal oral and palatal mucosa present Resp: COMMON NORMALS: normal respiratory effort and clear to auscultation bilaterally AUSCULTATION: clear to auscultation bilaterally Cardio: COMMON NORMALS: regular rate and regular rhythm RATE: regular rate RHYTHM: regular rhythm GI: COMMON NORMALS: Soft to palpation and non-tender PALPATION: Yes Soft to palpation : COMMON NORMALS: Yes no CVA tenderness BLADDER/KIDNEY EXAM: Yes no CVA tenderness Back/Pelvis: COMMON NORMALS: no CVA tenderness Extremity: COMMON NORMALS: normal to inspection and no pedal edema Neuro: SENSORIUM/ORIENTATION: Yes alert Skin: COMMON NORMALS: turgor normal GENERAL SKIN EXAM: turgor normal Course Vital Signs: Vital signs: Vital Signs Temperature 98.7 F 05/05/22 19:55 Pulse Rate 58 L 05/05/22 22:16 Respiratory Rate 20 H 05/05/22 21:41 Blood Pressure 153/86 05/05/22 22:00 Pulse Oximetry 99 05/05/22 22:16 Oxygen Delivery Me thod 05/05/22 22:16 MDM - Nausea/Vomiting/Diarrhea Medical Decision Making 41-year-old male patient comes in today with complaints of nausea vomiting starting this morning at about 1 AM. On exam abdomen soft with some generalized mild tenderness. Bowel sounds are active. Skin is warm and dry. Vital signs are normal except for some elevation of blood pressure at 200 systolic. Differential diagnosis includes but not limited to gastritis, gastroenteritis, hyperemesis syndrome, pancreatitis, gallbladder disease. Laboratory values were unremarkable except for some mild increased anion gap. Believe the patient probably has some mild dehydration secondary to nausea and vomiting. Believe patient most likely has a cyclic vomiting syndrome that may be exacerbated by marijuana use. Recommend follow-up with primary care for further evaluation and treatment. Return to ED for worsening symptoms or new concerns. Lab Data 05/05/22 20:51 05/05/22 20:51 Laboratory Results WBC 11.3 10^3/uL (4.0-10.0) H 05/05/22 20:51 RBC 5.96 10^6/uL (4.1-5.3) H 05/05/22 20:51 Hgb 17.1 g/dL (11.7-16.6) H 05/05/22 20:51 Hct 51.1 % (42.0-52.0) 05/05/22 20:51 MCV 85.7 fl (80-94) 05/05/22 20:51 MCH 28.7 pg (28.0-34.0) 05/05/22 20:51 MCHC 33.5 g/dL (30.0-36.0) 05/05/22 20:51 RDW 12.4 % (12.1-15.1) 05/05/22 20:51 Plt Count 215 10^3/cmm (130-400) 05/05/22 20:51 MPV 10.6 fL (7.4-10.4) H 05/05/22 20:51 Neut % (Auto) 91.6 % 05/05/22 20:51 Lymph % (Auto) 5.4 % 05/05/22 20:51 [place] % (Auto) 2.5 % 05/05/22 20:51 Eos % (Auto) 0.0 % 05/05/22 20:51 Baso % (Auto) 0.2 % 05/05/22 20:51 Neut # (Auto) 10.33 10^3/uL (1.8-7.7) H 05/05/22 20:51 Lymph # (Auto) 0.6 10^3/uL (0.8-4.8) L 05/05/22 20:51 [place] # (Auto) 0.3 10^3/uL (0.2-0.9) 05/05/22 20:51 Eos # (Auto) 0.0 10^3/uL (0.0-0.8) 05/05/22 20:51 Baso # (Auto) 0.0 10^3/uL (0.0-0.1) 05/05/22 20:51 Nucleated RBC % (auto) 0 % 05/05/22 20:51 Nucleated RBCs # 0.0 /100WBC 05/05/22 20:51 Sodium 143 mmol/L (136-145) 05/05/22 20:51 Potassium 4.2 mmol/L (3.5-5.1) 05/05/22 20:51 Chloride 102 mmol/L (98-107) 05/05/22 20:51 Carbon Dioxide 24 mmol/L (22-29) 05/05/22 20:51 Anion Gap 21.2 (5-19) H 05/05/22 20:51 BUN 10 mg/dL (6-20) 05/05/22 20:51 Creatinine 0.8 mg/dL (0.7-1.2) 05/05/22 20:51 GFR Calculation 106.0 mL/min (90-130) 05/05/22 20:51 Glucose 124 mg/dL (65-115) H 05/05/22 20:51 Calculated Osmolality 296 mOsm/kg (285-295) H 05/05/22 20:51 Calcium 9.6 mg/dL (8.5-10.5) 05/05/22 20:51 Total Bilirubin 0.4 mg/dL (0.15-1.2) 05/05/22 20:51 AST 20 U/L (0-40) 05/05/22 20:51 ALT 24 U/L (0-41) 05/05/22 20:51 Alkaline Phosphatase 91 U/L (40-130) 05/05/22 20:51 Total Protein 7.0 g/dL (6.6-8.7) 05/05/22 20:51 Albumin 4.7 g/dL (3.5-5.2) 05/05/22 20:51 Globulin 2.3 g/dL (1.3-4.6) 05/05/22 20:51 Lipase 13 U/L (13-60) 05/05/22 20:51 Discharge Plan Discharge Patient Disposition: Home Clinical Impression: Dehydration, Cyclic vomiting syndrome Condition: Stable Prescriptions: Continued metoclopramide HCl 10 mg tablet 10 mg PO Q6H PRN (Reason: nausea and vomiting) Qty: 30 0RF No Action ibuprofen 800 mg tablet 800 mg PO TID PRN (Reason: pain) Qty: 30 0RF Zofran 4 mg tablet 4 mg PO Q6H PRN (Reason: nausea and vomiting) Qty: 14 0RF Protonix 40 mg tablet,delayed release (DR/EC) 40 mg PO DAILY Qty: 60 0RF Discharge Orders: Discharge ED (Routine); Ordered 05/05/22 Ordered By: Felipe Laughlin Referrals: Charity Alas, VACUUM DRIER TENDER-C [Primary Care Provider] - Discharge Diet: Advance as tolerated Discharge Activity: Increase activity as tolerated Patient Instructions: Dehydration (ED), Opioid Safety, Pain Management Activity Restrictions/Additional Instructions: Increase diet as tolerated. Drink plenty of water and fluids. Take medications as directed for nausea and vomiting. Follow-up with primary care for further instruction return to the ED for new concerns. Coding Level of Care Code ED External Grinder Tender for Terrance Obregon
[2022-05-05] MEDS: haloperidol inj 5 mg/mL INJ 1 mL IVP (20:48)
[2022-05-05] MEDS: sodium chloride 0.9% 1,000 ML 999 ML IV ×2 (20:49→21:38)
[2022-05-05 20:55] VITALS: BP 129/76; PULSE 67; O2SAT 100
[2022-05-05 21:00] LABS: Basophils % 0.2 %; Hematocrit 51.1 % (42.0-52.0); Hemoglobin 17.1 g/dL (11.7-16.6); Lymphocytes # 0.6 10^3/uL (0.8-4.8); Lymphocytes % 5.4 %; Mean Corpuscular HGB Conc 33.5 g/dL (30.0-36.0); Mean Corpuscular Hemoglobin 28.7 pg (28.0-34.0); Mean Corpuscular Volume 85.7 fl (80-94); Mean Platelet Volume 10.6 fL (7.4-10.4); Monocytes # 0.3 10^3/uL (0.2-0.9); Monocytes % 2.5 %; Neutrophils # 10.33 10^3/uL (1.8-7.7); Neutrophils % 91.6 %; Nucleated Red Blood Cells % 0 %; Platelet Count 215 10^3/cmm (130-400); Red Blood Count 5.96 10^6/uL (4.1-5.3); Red Cell Distribution Width 12.4 % (12.1-15.1); White Blood Count 11.3 10^3/uL (4.0-10.0)
[2022-05-05 21:20] LABS: Alanine Aminotransferase 24 U/L (0-41); Albumin Level 4.7 g/dL (3.5-5.2); Alkaline Phosphatase 91 U/L (40-130); Anion Gap 21.2 (5-19); Aspartate Amino Transferase 20 U/L (0-40); Blood Urea Nitrogen 10 mg/dL (6-20); Calcium 9.6 mg/dL (8.5-10.5); Carbon Dioxide 24 mmol/L (22-29); Chloride 102 mmol/L (98-107); Globulin 2.3 g/dL (1.3-4.6); Glucose 124 mg/dL (65-115); Lipase 13 U/L (13-60); Osmolality Calculated 296 mOsm/kg (285-295); Potassium 4.2 mmol/L (3.5-5.1); Sodium 143 mmol/L (136-145); Total Bilirubin 0.4 mg/dL (0.15-1.2)
[2022-05-05 21:41] VITALS: BP 125/53; PULSE 69; RESP 20; O2SAT 97
[2022-05-05 22:00] VITALS: BP 153/86
[2022-05-05 22:16] VITALS: PULSE 58; O2SAT 99
[2022-05-05 22:46] VITALS: BP 152/72; PULSE 76; RESP 17
== END 2022-05-05 22:48 | disposition home or self-care (01) ==
PROVIDERS: Emergency Provider Nurse Practitioner Family; PCP Nurse Practitioner
DX: R11.15 Cyclical vomiting syndrome unrelated to migraine (principal); E86.0 Dehydration; F17.210 Nicotine dependence, cigarettes, uncomplicated
CPT/HCPCS: 80053; 83690; 85025; 96361; 96374; 99284; J1630; J7030

== ENCOUNTER 2022-09-13 13:44 | Emergency (ER) | payer BC, MEDICAID, SELFPAY ==
[2022-09-13 14:07] VITALS: BP 143/83; PULSE 64; RESP 16; TEMP 36.6; O2SAT 97; BMI 28.5
[2022-09-13 14:15] LABS: Hematocrit 49.1 % (42.0-52.0); Hemoglobin 16.4 g/dL (11.7-16.6); Lymphocytes # 0.5 10^3/uL (0.8-4.8); Lymphocytes % 5.9 %; Mean Corpuscular HGB Conc 33.4 g/dL (30.0-36.0); Mean Corpuscular Hemoglobin 29.1 pg (28.0-34.0); Mean Corpuscular Volume 87.2 fl (80-94); Mean Platelet Volume 10.8 fL (7.4-10.4); Monocytes # 0.3 10^3/uL (0.2-0.9); Monocytes % 3.7 %; Neutrophils # 7.37 10^3/uL (1.8-7.7); Neutrophils % 90.2 %; Nucleated Red Blood Cells % 0 %; Platelet Count 179 10^3/cmm (130-400); Red Blood Count 5.63 10^6/uL (4.1-5.3); Red Cell Distribution Width 12.5 % (12.1-15.1); White Blood Count 8.2 10^3/uL (4.0-10.0)
[2022-09-13 14:48] LABS: Alanine Aminotransferase 23 U/L (0-41); Albumin Level 4.9 g/dL (3.5-5.2); Alkaline Phosphatase 98 U/L (40-130); Aspartate Amino Transferase 19 U/L (0-40); Blood Urea Nitrogen 14 mg/dL (6-20); Calcium 9.9 mg/dL (8.5-10.5); Carbon Dioxide 24 mmol/L (22-29); Chloride 95 mmol/L (98-107); Globulin 2.1 g/dL (1.3-4.6); Glomerular Filtration Rate 92.1 mL/min (90-130); Glucose 159 mg/dL (65-115); Lipase 18 U/L (13-60); Osmolality Calculated 282 mOsm/kg (285-295); Sodium 134 mmol/L (136-145); Total Bilirubin 0.5 mg/dL (0.15-1.2)
[2022-09-13 14:50] LABS: Anion Gap 19.3 (5-19); Potassium 4.3 mmol/L (3.5-5.1)
[2022-09-13 16:11] VITALS: BP 125/64; PULSE 61; RESP 15; O2SAT 99
[2022-09-13 16:32] LABS: Add Urine Culture? No; Add Urine Microscopic? YES; Bacteria Urine TRACE /hpf; Bilirubin Urine Neg (Negative); Blood Urine 2+ (Negative); Glucose Urine UA Trace (Normal); Ketones Urine 2+ (Negative); Leukocyte Esterase Urine Negative (Negative); Mucus Urine 2+ /hpf; Nitrate Urine Negative (Negative); Protein Urine 1+ (Negative); RBC Urine 0-4 /hpf (0-2); Urine Appearance Clear (CLEAR); Urine Color Dark Yellow (Yellow); Urobilinogen Urine Norm (Negative); WBC Urine 0-4 /hpf (0-5); pH Urine 6.5 (5-7)
--- NOTE | 2022-09-13 16:44 | W.ED.ABDPA2 ---
HPI - Abdominal Pain General: Chief Complaint: Abdominal Pain Stated Complaint: NVD Time Seen by Provider: 09/13/22 16:29 History of Present Illness: Patient presents to the ER with complaints of nausea vomiting abdominal pain since yesterday. Patient says this has been constant in nature. Patient cannot keep anything down and he thinks he is dehydrated. Patient has had this happen to multiple times in the past. Patient does have a diagnosis of cannabinoid hyperemesis syndrome. Review of Systems General: Reports: 10 or more systems reviewed and unremarkable except in HPI and below PFSH ED PFSH: Medical History Acid reflux No pertinent family history Social History Smoking and tobacco status: current every day smoker Substance/Drug Use: current Substance/Drug use frequency: Special occassions/opportunity only Physical Exam Const: COMMON NORMALS: no acute distress, average body habitus, patient oriented x3, no limitations, healthy appearing, alert and well nourished HENMT: COMMON NORMALS: normocephalic, atraumatic, hearing grossly normal bilaterally, external ears normal, Normal external nose present and moist oral mucous membranes HEAD & SCALP: normocephalic and atraumatic NOSE: Normal external nose present EXTERNAL EAR: Yes external ears normal Eye: COMMON NORMALS: Equal, round and reactive pupils present, EOMs intact bilaterally, conjunctivae normal and no scleral icterus CONJUNCTIVA: Yes conjunctivae normal PUPIL: Yes Equal, round and reactive pupils present Neck/C-Spine: COMMON NORMALS: full ROM, no lymphadenopathy, supple, no meningeal signs, no JVD and Thyroid normal THYROID: Thyroid normal Chest: COMMONS NORMALS: normal inspection of the chest and normal palpation of entire chest wall Resp: COMMON NORMALS: normal respiratory effort, No retractions, No use of accessory muscles and clear to auscultation bilaterally AUSCULTATION: clear to auscultation bilaterally Cardio: COMMON NORMALS: no JVD, regular rate, regular rhythm, S1 normal heart sound present, S2 normal heart sound present, No gallops present (Cardio), No clicks present (Cardio), No murmurs present (Cardio) and No rub (Cardio) RATE: regular rate RHYTHM: regular rhythm HEART SOUNDS: S1 normal heart sound present and S2 normal heart sound present GI: COMMON NORMALS: Normal to inspection, nondistended, normoactive bowel sounds present, Soft to palpation, non-tender and No hepatosplenomegaly present PALPATION: Yes Soft to palpation and Yes No hepatosplenomegaly present : COMMON NORMALS: Yes no CVA tenderness BLADDER/KIDNEY EXAM: Yes no CVA tenderness Back/Pelvis: COMMON NORMALS: no CVA tenderness Neuro: COMMON NORMALS: patient oriented x3 SENSORIUM/ORIENTATION: Yes alert MENINGEAL SIGNS: Yes no meningeal signs Course Vital Signs: Vital signs: Vital Signs Temperature 97.9 F 09/13/22 14:07 Pulse Rate 68 09/13/22 17:04 Respiratory Rate 25 H 09/13/22 17:04 Blood Pressure 145/74 09/13/22 17:04 Pulse Oximetry 100 09/13/22 17:04 Oxygen Delivery Me thod Room Air 09/13/22 17:04 MDM - Abdominal Pain Medical Decision Making Patient presents to the ER with complaints of abdominal pain and nausea vomiting started yesterday. Patient does have a diagnosis of cyclical vomiting syndrome, hyper cannabinoid syndrome. Lab work was obtained physical exam was performed patient was given 1 L bolus of normal saline, 10 of Reglan, 5 of Haldol and, 50 of Benadryl and is much improved. Patient be discharged home Differential Diagnosis Likely abdominal pain and gastroenteritis; Unlikely acute appendicitis, calculus of kidney, constipation, diverticulitis, endometriosis, pancreatitis or small bowel obstruction Medical Records I reviewed the patient's medical records. Lab Data I reviewed the patient's lab results. 09/13/22 14:07 09/13/22 14:07 Labs/Radiology: Laboratory Results WBC 8.2 10^3/uL (4.0-10.0) 09/13/22 14:07 RBC 5.63 10^6/uL (4.1-5.3) H 09/13/22 14:07 Hgb 16.4 g/dL (11.7-16.6) 09/13/22 14:07 Hct 49.1 % (42.0-52.0) 09/13/22 14:07 MCV 87.2 fl (80-94) 09/13/22 14:07 MCH 29.1 pg (28.0-34.0) 09/13/22 14:07 MCHC 33.4 g/dL (30.0-36.0) 09/13/22 14:07 RDW 12.5 % (12.1-15.1) 09/13/22 14:07 Plt Count 179 10^3/cmm (130-400) 09/13/22 14:07 MPV 10.8 fL (7.4-10.4) H 09/13/22 14:07 Neut % (Auto) 90.2 % 09/13/22 14:07 Lymph % (Auto) 5.9 % 09/13/22 14:07 [place] % (Auto) 3.7 % 09/13/22 14:07 Eos % (Auto) 0.0 % 09/13/22 14:07 Baso % (Auto) 0.0 % 09/13/22 14:07 Neut # (Auto) 7.37 10^3/uL (1.8-7.7) 09/13/22 14:07 Lymph # (Auto) 0.5 10^3/uL (0.8-4.8) L 09/13/22 14:07 [place] # (Auto) 0.3 10^3/uL (0.2-0.9) 09/13/22 14:07 Eos # (Auto) 0.0 10^3/uL (0.0-0.8) 09/13/22 14:07 Baso # (Auto) 0.0 10^3/uL (0.0-0.1) 09/13/22 14:07 Nucleated RBC % (auto) 0 % 09/13/22 14:07 Nucleated RBCs # 0.0 /100WBC 09/13/22 14:07 Sodium 134 mmol/L (136-145) L 09/13/22 14:07 Potassium 4.3 mmol/L (3.5-5.1) 09/13/22 14:07 Chloride 95 mmol/L (98-107) L 09/13/22 14:07 Carbon Dioxide 24 mmol/L (22-29) 09/13/22 14:07 Anion Gap 19.3 (5-19) H 09/13/22 14:07 BUN 14 mg/dL (6-20) 09/13/22 14:07 Creatinine 0.9 mg/dL (0.7-1.2) 09/13/22 14:07 GFR Calculation 92.1 mL/min (90-130) 09/13/22 14:07 Glucose 159 mg/dL (65-115) H 09/13/22 14:07 Calculated Osmolality 282 mOsm/kg (285-295) L 09/13/22 14:07 Calcium 9.9 mg/dL (8.5-10.5) 09/13/22 14:07 Total Bilirubin 0.5 mg/dL (0.15-1.2) 09/13/22 14:07 AST 19 U/L (0-40) 09/13/22 14:07 ALT 23 U/L (0-41) 09/13/22 14:07 Alkaline Phosphatase 98 U/L (40-130) 09/13/22 14:07 Total Protein 7.0 g/dL (6.6-8.7) 09/13/22 14:07 Albumin 4.9 g/dL (3.5-5.2) 09/13/22 14:07 Globulin 2.1 g/dL (1.3-4.6) 09/13/22 14:07 Lipase 18 U/L (13-60) 09/13/22 14:07 Urine Color Dark yellow (Yellow) 09/13/22 15:15 Urine Appearance Clear (CLEAR) 09/13/22 15:15 Urine pH 6.5 (5-7) 09/13/22 15:15 Ur Specific [place] 1.020 (1.005-1.030) 09/13/22 15:15 Urine Protein 1+ (Negative) H 09/13/22 15:15 Urine Glucose (UA) Trace (Normal) H 09/13/22 15:15 Urine Ketones 2+ (Negative) H 09/13/22 15:15 Urine Blood 2+ (Negative) H 09/13/22 15:15 Urine Nitrate Negative (Negative) 09/13/22 15:15 Urine Bilirubin Neg (Negative) 09/13/22 15:15 Urine Urobilinogen Norm mg/dL (Negative) 09/13/22 15:15 Ur Leukocyte Esterase Negative (Negative) 09/13/22 15:15 Urine RBC 0-4 /hpf (0-2) H 09/13/22 15:15 Urine WBC 0-4 /hpf (0-5) H 09/13/22 15:15 Ur Squamous Epith Cells None /hpf (0-5) 09/13/22 15:15 Amorphous Sediment Not Reportable 09/13/22 15:15 Urine Bacteria Trace /hpf (NONE) 09/13/22 15:15 Urine Mucus 2+ /hpf 09/13/22 15:15 Urine Opiates Screen Negative ng/mL (Negative) 09/13/22 15:15 Ur Barbiturates Screen Negative ng/mL (Negative) 09/13/22 15:15 Ur Phencyclidine Scrn Negative ng/mL (Negative) 09/13/22 15:15 Ur Amphetamines Screen Negative ng/mL (Negative) 09/13/22 15:15 U Benzodiazepines Scrn Negative ng/mL (Negative) 09/13/22 15:15 Urine Cocaine Screen Negative ng/mL (Negative) 09/13/22 15:15 U Marijuana (THC) Screen Positive ng/mL (Negative) H 09/13/22 15:15 Discharge Plan Discharge Patient Disposition: Home Clinical Impression: Cyclical vomiting syndrome Condition: Stable Prescriptions: No Action ibuprofen 800 mg tablet 800 mg PO TID PRN (Reason: pain) Qty: 30 0RF Zofran 4 mg tablet 4 mg PO Q6H PRN (Reason: nausea and vomiting) Qty: 14 0RF Protonix 40 mg tablet,delayed release (DR/EC) 40 mg PO DAILY Qty: 60 0RF metoclopramide HCl 10 mg tablet 10 mg PO Q6H PRN (Reason: nausea and vomiting) Qty: 30 0RF Discharge Orders: Discharge ED (Routine); Ordered 09/13/22 Ordered By: Harvey Garcia Referrals: Charity Alas, BONE PLANT SUPERVISOR-C [Primary Care Provider] - 1 week Patient Instructions: Acute Nausea and Vomiting (ED) Activity Restrictions/Additional Instructions: Follow-up with your family practice doctor in the next 7 days or sooner as needed. Please return to the ER if symptoms worsen and are uncontrolled. Coding Level of Care Code ED Chief Ultrasound Technologist for Terrance Obregon
[2022-09-13] MEDS: sodium chloride 0.9% 1,000 ML 999 ML IV (16:47)
[2022-09-13] MEDS: metoclopramide 5 mg/mL SDV 2 mL 10 MG IVP (16:51)
[2022-09-13] MEDS: haloperidol inj 5 mg/mL INJ 1 mL IVP (16:54)
[2022-09-13] MEDS: diphenhydrAMINE 50 mg/mL SDV 1mL IVP (16:58)
[2022-09-13 17:04] VITALS: BP 145/74; PULSE 68; RESP 25; O2SAT 100
[2022-09-13 17:24] LABS: Amphetamines Screen Urine Negative (Negative); Barbiturates Screen Urine Negative (Negative); Benzodiazepines Screen Urine Negative (Negative); Cocaine Screen Urine Negative (Negative); Opiate Screen Urine Negative (Negative); PCP Screen Urine Negative (Negative); THC Screen Urine Positive (Negative)
[2022-09-13 18:16] VITALS: BP 131/68; PULSE 61; RESP 20; O2SAT 98
[2022-09-13 18:20] VITALS: BP 131/68; PULSE 61; RESP 20; TEMP 36.6; O2SAT 98
== END 2022-09-13 18:20 | disposition home or self-care (01) ==
PROVIDERS: Physician Assistant; Emergency Provider Emergency Medicine; PCP Nurse Practitioner
DX: R11.15 Cyclical vomiting syndrome unrelated to migraine (principal); F17.210 Nicotine dependence, cigarettes, uncomplicated
CPT/HCPCS: 36415; 80053; 80306; 81001; 83690; 85025; 96374; 96375; 99284; J1200; J1630; J2765; J7030

== ENCOUNTER 2023-01-26 15:56 | Emergency (ER) | payer BC, MEDICAID, SELFPAY ==
[2023-01-26 16:16] VITALS: BP 168/75; PULSE 65; RESP 22; TEMP 36.7; O2SAT 97; BMI 25.7
[2023-01-26 16:54] LABS: Basophils % 0.1 %; Eosinophils # 0.1 10^3/uL (0.0-0.8); Eosinophils % 0.5 %; Hematocrit 50.9 % (37-53); Lymphocytes % 6.5 %; Mean Corpuscular HGB Conc 34.2 g/dL (30-55); Mean Corpuscular Hemoglobin 29.6 pg (27-33); Mean Corpuscular Volume 86.6 fl (82-101); Mean Platelet Volume 10.2 fL (7.4-10.4); Monocytes % 6.6 %; Neutrophils # 12.73 10^3/uL (1.8-7.7); Nucleated Red Blood Cells % 0 %; Platelet Count 250 10^3/cmm (157-399); Red Blood Count 5.88 10^6/uL (3.85-5.65); Red Cell Distribution Width 12.1 % (12.1-15.1); White Blood Count 14.82 10^3/uL (3.29-11.43)
[2023-01-26 17:20] LABS: Alanine Aminotransferase 21 U/L (0-41); Albumin Level 4.9 g/dL (3.5-5.2); Alkaline Phosphatase 83 U/L (40-130); Anion Gap 16.5 (5-19); Aspartate Amino Transferase 21 U/L (0-40); Blood Urea Nitrogen 13 mg/dL (6-20); Carbon Dioxide 29 mmol/L (22-29); Chloride 93 mmol/L (98-107); Creatinine Clr Calc Pharmacy 124.7234; Globulin 2.6 g/dL (1.3-4.6); Glomerular Filtration Rate 92.1 mL/min (90-130); Glucose 124 mg/dL (65-115); Lipase 63 U/L (13-60); Osmolality Calculated 282 mOsm/kg (285-295); Potassium 3.5 mmol/L (3.5-5.1); Sodium 135 mmol/L (136-145); Total Bilirubin 0.7 mg/dL (0.15-1.2); Total Protein 7.5 g/dL (6.6-8.7)
--- NOTE | 2023-01-26 18:36 | PC.NURSE ---
THIS RN ASSUMED CARE AT THIS TIME
[2023-01-26] MEDS: sodium chloride 0.9% 1,000 ML 999 ML IV (18:46)
[2023-01-26] MEDS: diphenhydrAMINE 50 mg/mL SDV 1mL IVP (18:47)
[2023-01-26] MEDS: metoclopramide 5 mg/mL SDV 2 mL 10 MG IVP (18:50)
[2023-01-26 18:51] VITALS: BP 139/89; PULSE 80; RESP 17; O2SAT 97
--- NOTE | 2023-01-26 18:57 | ED_ITS ---
HPI - Nausea/Vomiting/Diarrhea 2 General: Chief complaint: Nausea/Vomiting/Diarrhea Stated complaint: NVD Time Seen by Provider: 01/26/23 18:14 Source: patient Mode of arrival: ambulatory Limitations: no limitations History of Present Illness: 42-year-old male with a history of cycli hunter vomiting syndrome states he has had vomiting over the last 3 days. He states he is ran out of his nausea medicine at home. He has had some abdominal cramping and rates a 3 out of 10 denies any fevers denies any diarrhea denies any worsening improving factors. Associated nausea: Yes Associated symtoms: Reports nausea; Denies chest pain, dysuria or headache(s) Review of Systems 2 Const: Denies: fever(s), chills, body aches or change in appetite Eyes: Denies: blurry vision or eye discomfort ENMT: Denies: throat pain or dental pain Card: Denies: chest pain Resp: Denies: dyspnea GI: Reports: nausea and vomiting; Denies: abdominal pain or diarrhea : Denies: dysuria Musc: Denies: neck pain or back pain Skin/Breast: Denies: rash Neuro: Denies: headache(s) PFSH ED 2 PFSH: Medical History Acid reflux No pertinent family history Social History Smoking and tobacco/nicotine status: current every day tobacco/nicotine user Substance/Drug Use: current Substance/Drug use frequency: Special occassions/opportunity only Physical Exam 2 Const: COMMON NORMALS: no acute distress, patient oriented x3 and healthy appearing HENMT: COMMON NORMALS: normocephalic and atraumatic HEAD & SCALP: n ormocephalic and atraumatic Eye: COMMON NORMALS: Equal, round and reactive pupils present and EOMs intact bilaterally PUPIL: Yes Equal, round and reactive pupils present Neck/C-Spine: COMMON NORMALS: full ROM and supple Chest: COMMONS NORMALS: normal inspection of the chest and normal palpation of entire chest wall Resp: COMMON NORMALS: normal respiratory effort, No retractions, No use of accessory muscles and clear to auscultation bilaterally AUSCULTATION: clear to auscultation bilaterally Cardio: COMMON NORMALS: regular rate, regular rhythm and No murmurs present (Cardio) RATE: regular rate RHYTHM: regular rhythm GI: COMMON NORMALS: Normal to inspection, nondistended, normoactive bowel sounds present, Soft to palpation, non-tender and no masses PALPATION: Yes Soft to palpation Extremity: COMMON NORMALS: normal to inspection and full ROM Neuro: COMMON NORMALS: patient oriented x3, moves all extremities and no focal motor deficits Psych: COMMON NORMALS: mental status grossly normal, Normal thought process present and cooperative THOUGHT PROCESS: Normal thought process present Skin: COMMON NORMALS: no rashes or lesions noted and no wounds GENERAL SKIN EXAM: no rashes or lesions noted Course 2 Vital Signs: Vital signs: Vital Signs Temperature 98.0 F 01/26/23 16:16 Pulse Rate 79 01/26/23 19:43 Respiratory Rate 16 01/26/23 19:43 Blood Pressure 138/90 01/26/23 19:43 Pulse Oximetry 97 01/26/23 19:43 Oxygen Delivery Me thod Room Air 01/26/23 19:43 MDM - Nausea/Vomiting/Diarrhea Medical Decision Making Patient presents here with vomiting likely from cyclic vomiting syndrome he feels much improved here after IV meds and fluids he has been able to tolerate p.o. here his abdominal exam is benign no signs of acute surgical process. We will prescribe him Zofran for home he is to follow-up with PCP and return if worsening. Medical Records I reviewed the patient's medical records. Lab Data I reviewed the patient's lab results. 01/26/23 16:30 01/26/23 16:30 Laboratory Results WBC 14.82 10^3/uL (3.29-11.43) H 01/26/23 16:30 RBC 5.88 10^6/uL (3.85-5.65) H 01/26/23 16:30 Hgb 17.40 g/dL (11.27-16.99) H 01/26/23 16:30 Hct 50.9 % (37-53) 01/26/23 16:30 MCV 86.6 fl (82-101) 01/26/23 16:30 MCH 29.6 pg (27-33) 01/26/23 16:30 MCHC 34.2 g/dL (30-55) 01/26/23 16:30 RDW 12.1 % (12.1-15.1) 01/26/23 16:30 Plt Count 250 10^3/cmm (157-399) 01/26/23 16:30 MPV 10.2 fL (7.4-10.4) 01/26/23 16:30 Neut % (Auto) 86.0 % 01/26/23 16:30 Lymph % (Auto) 6.5 % 01/26/23 16:30 [place] % (Auto) 6.6 % 01/26/23 16:30 Eos % (Auto) 0.5 % 01/26/23 16:30 Baso % (Auto) 0.1 % 01/26/23 16:30 Neut # (Auto) 12.73 10^3/uL (1.8-7.7) H 01/26/23 16:30 Lymph # (Auto) 1.0 10^3/uL (0.8-4.8) 01/26/23 16:30 [place] # (Auto) 1.0 10^3/uL (0.2-0.9) H 01/26/23 16:30 Eos # (Auto) 0.1 10^3/uL (0.0-0.8) 01/26/23 16:30 Baso # (Auto) 0.0 10^3/uL (0.0-0.1) 01/26/23 16:30 Nucleated RBC % (auto) 0 % 01/26/23 16:30 Nucleated RBCs # 0.0 /100WBC 01/26/23 16:30 Sodium 135 mmol/L (136-145) L 01/26/23 16:30 Potassium 3.5 mmol/L (3.5-5.1) 01/26/23 16:30 Chloride 93 mmol/L (98-107) L 01/26/23 16:30 Carbon Dioxide 29 mmol/L (22-29) 01/26/23 16:30 Anion Gap 16.5 (5-19) 01/26/23 16:30 BUN 13 mg/dL (6-20) 01/26/23 16:30 Creatinine 0.9 mg/dL (0.7-1.2) 01/26/23 16:30 GFR Calculation 92.1 mL/min (90-130) 01/26/23 16:30 Glucose 124 mg/dL (65-115) H 01/26/23 16:30 Calculated Osmolality 282 mOsm/kg (285-295) L 01/26/23 16:30 Calcium 10.0 mg/dL (8.5-10.5) 01/26/23 16:30 Total Bilirubin 0.7 mg/dL (0.15-1.2) 01/26/23 16:30 AST 21 U/L (0-40) 01/26/23 16:30 ALT 21 U/L (0-41) 01/26/23 16:30 Alkaline Phosphatase 83 U/L (40-130) 01/26/23 16:30 Total Protein 7.5 g/dL (6.6-8.7) 01/26/23 16:30 Albumin 4.9 g/dL (3.5-5.2) 01/26/23 16:30 Globulin 2.6 g/dL (1.3-4.6) 01/26/23 16:30 Lipase 63 U/L (13-60) H 01/26/23 16:30 Urine Color Dark yellow (Yellow) 01/26/23 19:03 Urine Appearance Clear (CLEAR) 01/26/23 19:03 Urine pH 7 (5-7) 01/26/23 19:03 Ur Specific [place] 1.015 (1.005-1.030) 01/26/23 19:03 Urine Protein Neg (Negative) 01/26/23 19:03 Urine Glucose (UA) Norm (Normal) 01/26/23 19:03 Urine Ketones Negative (Negative) 01/26/23 19:03 Urine Blood Neg (Negative) 01/26/23 19:03 Urine Nitrate Negative (Negative) 01/26/23 19:03 Urine Bilirubin Neg (Negative) 01/26/23 19:03 Urine Urobilinogen Norm mg/dL (Negative) 01/26/23 19:03 Ur Leukocyte Esterase Negative (Negative) 01/26/23 19:03 Urine Opiates Screen Negative ng/mL (Negative) 01/26/23 19:05 Ur Barbiturates Screen Negative ng/mL (Negative) 01/26/23 19:05 Ur Phencyclidine Scrn Negative ng/mL (Negative) 01/26/23 19:05 Ur Amphetamines Screen Negative ng/mL (Negative) 01/26/23 19:05 U Benzodiazepines Scrn Negative ng/mL (Negative) 01/26/23 19:05 Urine Cocaine Screen Negative ng/mL (Negative) 01/26/23 19:05 U Marijuana (THC) Screen Positive ng/mL (Negative) H 01/26/23 19:05 No radiology studies performed this visit Discharge Plan Discharge Patient Disposition: Home Clinical Impression: Vomiting Qualifiers: Vomiting type: cyclical vomiting syndrome unrelated to migraine Qualified Code(s): R11.15 - Cyclical vomiting syndrome unrelated to migraine Condition: Stable Prescriptions: New ondansetron 4 mg tablet,disintegrating 4 mg PO Q6H PRN (Reason: nausea and vomiting) Qty: 14 0RF No Action clindamycin HCl 300 mg capsule 600 mg PO TID 7 Days Qty: 42 0RF ibuprofen 800 mg tablet 800 mg PO TID PRN (Reason: pain) Qty: 30 0RF Protonix 40 mg tablet,delayed release (DR/EC) 40 mg PO DAILY Qty: 60 0RF Discharge Orders: Discharge ED (Routine); Ordered 01/26/23 Ordered By: Saul Narayanan Referrals: Charity Alas, PHARMACY DELIVERY DRIVER-C [Primary Care Provider] - Discharge Diet: Advance as tolerated Discharge Activity: Resume usual activity Patient Instructions: Acute Nausea and Vomiting (ED) Coding Level of Care Code ED Sales Representative Metals for Terrance Obregon
[2023-01-26 19:10] LABS: Add Urine Microscopic? NO; Charge for UA Resulting for Rev
[2023-01-26 19:17] LABS: Urine Appearance Clear (CLEAR); Urine Color Dark Yellow (Yellow); pH Urine 7 (5-7)
[2023-01-26 19:18] LABS: Bilirubin Urine Neg (Negative); Blood Urine Neg (Negative); Glucose Urine UA Norm (Normal); Ketones Urine Negative (Negative); Leukocyte Esterase Urine Negative (Negative); Nitrate Urine Negative (Negative); Protein Urine Neg (Negative); Specific Gravity, Urine 1.015 (1.005-1.030); Urobilinogen Urine Norm (Negative)
[2023-01-26 19:32] LABS: Amphetamines Screen Urine Negative (Negative); Barbiturates Screen Urine Negative (Negative); Benzodiazepines Screen Urine Negative (Negative); Cocaine Screen Urine Negative (Negative); Opiate Screen Urine Negative (Negative); PCP Screen Urine Negative (Negative); THC Screen Urine Positive (Negative)
[2023-01-26 19:43] VITALS: BP 138/90; PULSE 79; RESP 16; RESP 17; O2SAT 97
== END 2023-01-26 19:44 | disposition home or self-care (01) ==
PROVIDERS: Physician Assistant; Emergency Provider Emergency Medicine; PCP Nurse Practitioner
DX: R11.15 Cyclical vomiting syndrome unrelated to migraine (principal); Z72.0 Tobacco use
CPT/HCPCS: 36415; 80053; 80306; 81003; 83690; 85025; 96374; 96375; 99284; J1200; J2765; J7030